=== PATIENT | male | born 1940 | race Caucasian/White ===

== ENCOUNTER 2020-08-02 07:36 | Inpatient (IN) ==
[2020-08-02] MEDS ORDERED: IOPAMIDOL 100 ML BOTTLE IV ONE (07:37)
[2020-08-02] MEDS ORDERED: LACTATED RINGERS 1,000 ML IV ONE (07:46)
[2020-08-02 08:00] LABS: POC Calcium, Ionized 1.14 mmEq/L (1.16-1.32); POC Creatinine 1.2 mg/dL (0.6-1.2); POC Potassium 4.4 mEql/L (3.3-5.1)
[2020-08-02] MEDS ORDERED: PANTOPRAZOLE 40 MG VIAL IV ONE (08:09)
--- NOTE | 2020-08-02 08:30 | Emergency Department Note ---
GI Bleed HPI General Chief complaint: Rectal Bleed Stated complaint: possible GI bleed, maroon stools Time Seen by Provider: 08/02/20 07:40 Source: patient and EMS Mode of arrival: EMS Limitations: no limitations History of Present Illness HPI Narrative: Narrative: Presents to room T5 for evaluation of rectal bleeding. The patient has a past medical history of Crohn's disease. The patient reports he has had rectal bleeding in the past but he believes his most recent episode was 2 years ago. The patient reports symptoms onset this morning at approximately 2 AM. The patient reports feeling weak. When he attempted to stand he had an uncontrolled large maroon/tarry bowel movement. He denies any abdominal pain. He denies any fevers. Denies any trauma. No nausea or vomiting. He denies any known exacerbating or alleviating factors Related Data Home Medications Medication Instructions Recorded Confirmed aspirin 81 mg PO DAILY 07/01/17 06/08/20 mercaptopurine 50 mg PO DAILY 07/01/17 06/08/20 cholecalciferol (vitamin D3) 125 125 mcg PO QDAY 10/12/19 06/08/20 mcg (5,000 unit) capsule multivitamin 1 tab PO QAM 10/12/19 06/08/20 folic acid 1 mg tablet 1 mg PO 3XW tab 11/23/19 06/08/20 mecobalamin (vitamin B12) 1,000 1,000 mcg PO 3XW tab 11/23/19 06/08/20 mcg chewable tablet bumetanide 1 mg tablet 1 mg PO QDAY tab 04/20/20 06/08/20 Previous Rx's Medication Instructions Recorded sertraline 25 mg tablet 25 mg PO DAILY #90 tab 10/13/19 sildenafil 100 mg tablet 100 mg PO DAILY #90 tab 02/07/20 blood sugar diagnostic See Rx Instructions .ROUTE 03/20/20 .COMPLEX #100 strip rivaroxaban 10 mg tablet 10 mg PO QDAY #90 tab 03/23/20 irbesartan 75 mg tablet 75 mg PO QDAY #90 tab 05/29/20 balsalazide 750 mg capsule 2,250 mg PO TID #810 cap 07/11/20 potassium chloride 10 mEq 10 meq PO BID #180 tab 07/21/20 tablet,extended release carvedilol 3.125 mg tablet See Rx Instructions .ROUTE 03/10/21 .COMPLEX #180 tab Allergies Allergy/AdvReac Type Severity Reaction Status Date / Time No Known Intolerances Allergy Unknown Other Verified 08/02/20 07:44 Review of Systems ROS ROS Narrative: Narrative: All systems ED: reviewed and negative except as stated. FORMERLY [facility] Narrative Patient History Narrative: Narrative: Medical/Surgical/Family History All Active Problems (Updated 08/02/20 @ 11:20 by Daniel Moon MD) Rectal bleeding (Acute) Diabetes mellitus with hyperglycemia (Acute) Low back pain (Acute) Basal cell carcinoma (BCC) of skin of nose (Chronic ~10/27/17) Hemorrhoids (Chronic) Hay fever (Chronic) Pneumonia (Chronic) Measles (Chronic) Acute systolic CHF (congestive heart failure), NYHA class 1 (Chronic) Major depressive disorder, single episode, mild (Chronic) Chronic systolic (congestive) heart failure (Chronic) Pulmonary arterial hypertension (Chronic) Mitral insufficiency (Chronic) Sick sinus syndrome (Chronic) 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) Personal history of diseases of the skin and subcutaneous tissue (Chronic) Other hemoglobinopathies (Chronic) Chronic fatigue (Chronic) Benign prostatic hyperplasia without lower urinary tract symptoms (Chronic) 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) Left sided colitis without complications (Chronic) CKD (chronic kidney disease), stage II (Chronic) Right bundle branch block (Chronic) Dry eye syndrome of both eyes (Chronic) Unspecified ptosis of bilateral eyelids (Chronic) Contraction, 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) Conductive hearing loss, bilateral (Chronic) 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) Other ulcerative colitis without complications (Chronic) Anxiety (Chronic) Hernia (Chronic) Cataract (Chronic) Kidney stones (Chronic ~07/2019) High cholesterol (Chronic ~1989) High blood pressure (Chronic ~1994) History of blood clots (Chronic ~07/2018) Crohn's disease (Chronic) Skin cancer (Chronic) Diabetes mellitus, type II (Chronic) Left upper extremity swelling (Chronic) Subclavian vein thrombosis, left (Chronic) Pacemaker (Chronic ~07/2017) Prediabetes (Chronic) Inflammatory bowel disease (Chronic) Bradycardia (Chronic) Medical History (Updated 08/02/20 @ 11:20 by Daniel Moon MD) Acute systolic CHF (congestive heart failure), NYHA class 1 Anxiety Basal cell carcinoma (BCC) of skin of nose (~10/27/17) Benign prostatic hyperplasia without lower urinary tract symptoms Bradycardia Cataract 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 Chronic fatigue Chronic systolic (congestive) heart failure CKD (chronic kidney disease), stage II Conductive hearing loss, bilateral Contraction, premature ventricular Crohn's disease Diabetes mellitus with hyperglycemia Diabetes mellitus, type II Dry eye syndrome of both eyes ED (erectile dysfunction) of non-organic origin Hay fever Hemorrhoids Hernia High blood pressure (~1994) High cholesterol (~1989) History of blood clots (~07/2018) Inflammatory bowel disease Kidney stones (~07/2019) Left sided colitis without complications Left upper extremity swelling Low back pain Major depressive disorder, single episode, mild Measles Mitral insufficiency Other hemoglobinopathies Other ulcerative colitis without complications Pacemaker (~07/2017) Personal history of diseases of the skin and subcutaneous tissue H/O sebaceous epithelioma, 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 Unspecified ptosis of bilateral eyelids Vertebro-basilar artery syndrome Surgical History History of cataract extraction (~2014) History of colonoscopy (~12/2008) History of eye surgery (~2016) History of hernia repair 1994; 2002 History of pacemaker (~08/13/17) 2017; 2019 History of strabismus surgery (~2016) Status post surgical removal of malignant neoplasm of skin (~2018) Right Cheek Family History Sister Ovarian cancer Father High blood pressure Heart attack Social History Smoking Status: Never smoker Alcohol Intake Frequency: a few times a month Substance Use: does not use Exam Narrative Narrative: Narrative: General Limitations: no limitations General appearance: Present alert, in no apparent distress and other (The patient is noted to be covered in dark melanotic stool over majority of his legs consistent with GI bleed) Head Head: Present atraumatic, normocephalic and normal inspection Eye Eye: Present normal appearance and EOMI; Absent conjunctival injection ENT ENT: Present normal exam and mucous membranes moist Neck Neck: Present normal inspection and trachea midline Respiratory Respiratory: Present normal lung sounds bilaterally; Absent respiratory distress Cardiovascular Cardiovascular: Present regular rate, normal rhythm and normal heart sounds Adbominal Abdominal: Present soft; Absent distention, tenderness, guarding and rebound Extremities Extremities: Present normal inspection; Absent tenderness Back Back: Present normal inspection; Absent tenderness Neurological Neurological: Present alert, oriented X3 and CN II-XII intact; Absent motor sen beto deficit Psychiatric Psychiatric: Present normal affect and normal mood Skin Skin: Present warm (WNL) and dry; Absent rash Course Vital Signs Vital signs: Vital Signs Pulse Rate 102 H 08/02/20 07:36 Respiratory Rate 20 08/02/20 07:36 Blood Pressure 119/61 08/02/20 07:36 Pulse Oximetry (%) 94 08/02/20 07:36 Pulse Rate 91 H 08/02/20 11:01 Respiratory Rate 17 08/02/20 11:01 Blood Pressure 129/55 08/02/20 11:01 Pulse Oximetry (%) 94 08/02/20 11:01 MDM MDM Narrative Medical decision making narrative: Narrative: Lab Data Lab results reviewed: Yes I reviewed the patient's lab results. Result diagrams: 08/02/20 Unknown 08/02/20 Unknown Labs: Lab Results 08/02/20 08/02/20 08/02/20 Range/Units 07:52 Unknown Unknown WBC 13.6 H (4.5-11.0) K/mcL RBC 3.01 L (4.50-5.90) M/mcL Hgb 7.8 L (13.5-16.5) g/dL Hct 26.1 L (41.0-55.0) % POC Hct 28 L (41-55) % MCV 86.7 (80.0-100.0) fL MCH 25.9 L (26.0-34.0) pg MCHC 29.9 L (31.0-36.0) g/dL RDW 19.7 H (11.5-14.5) % Plt Count 379 (140-440) K/mcL MPV 10.1 (7.4-10.4) fL Neut % (Auto) 96.6 H (38.0-78.0) % Lymph % (Auto) 0.7 L (15.0-49.0) % Hartley % (Auto) 2.2 (1.0-12.0) % Eos % (Auto) 0.1 (0.0-7.0) % Baso % (Auto) 0.4 (0.0-2.0) % Lymph # (Auto) 0.10 L (1.50-4.80) K/mcL Hartley # (Auto) 0.30 (0.10-0.90) K/mcL Eos # (Auto) 0.02 (0.00-0.70) K/mcL Baso # (Auto) 0.05 (0.00-0.20) K/mcL Absolute Neutrophils 13.09 H (1.80-8.00) K/mcL PT 15.4 H (11.9-14.5) sec INR 1.2 H (0.9-1.1) APTT 36.9 (20.0-37.0) sec POC Sodium 138 (133-145) mEq/L Sodium (133-145) mmol/L POC Potassium 4.4 (3.3-5.1) mEql/L Potassium (3.3-5.1) mmol/L POC Chloride 106 (96-108) mEq/L Chloride (96-108) mmol/L Carbon Dioxide (22-30) mmol/L POC Total CO2 22 (22-30) mmol/L Anion Gap (8.0-16.0) POC BUN 29 H (6-20) mg/dL BUN (8-23) mg/dL Creatinine (0.7-1.2) mg/dL POC Creatinine 1.2 (0.6-1.2) mg/dL GFR Calculation Glucose (70-105) mg/dL POC Glucose 179 H (70-105) mg/dL Calcium (8.6-10.4) mg/dL POC WB Ioniz Calcium 1.14 L (1.16-1.32) mmEq/L Total Bilirubin (0.1-1.0) mg/dL AST (<40) U/L ALT (<40) U/L Alkaline Phosphatase (39-117) U/L Total Protein (5.9-8.4) gm/dL Albumin (3.2-5.2) gm/dL Globulin (2.2-3.7) gm/dL Albumin/Globulin Ratio (1.0-2.3) // Range/Units Unknown WBC (4.5-11.0) K/mcL RBC (4.50-5.90) M/mcL Hgb (13.5-16.5) g/dL Hct (41.0-55.0) % POC Hct (41-55) % MCV (80.0-100.0) fL MCH (26.0-34.0) pg MCHC (31.0-36.0) g/dL RDW (11.5-14.5) % Plt Count (140-440) K/mcL MPV (7.4-10.4) fL Neut % (Auto) (38.0-78.0) % Lymph % (Auto) (15.0-49.0) % Hartley % (Auto) (1.0-12.0) % Eos % (Auto) (0.0-7.0) % Baso % (Auto) (0.0-2.0) % Lymph # (Auto) (1.50-4.80) K/mcL Hartley # (Auto) (0.10-0.90) K/mcL Eos # (Auto) (0.00-0.70) K/mcL Baso # (Auto) (0.00-0.20) K/mcL Absolute Neutrophils (1.80-8.00) K/mcL PT (11.9-14.5) sec INR (0.9-1.1) APTT (20.0-37.0) sec POC Sodium (133-145) mEq/L Sodium 137 (133-145) mmol/L POC Potassium (3.3-5.1) mEql/L Potassium 4.5 (3.3-5.1) mmol/L POC Chloride (96-108) mEq/L Chloride 102 (96-108) mmol/L Carbon Dioxide 23 (22-30) mmol/L POC Total CO2 (22-30) mmol/L Anion Gap 12.0 (8.0-16.0) POC BUN (6-20) mg/dL BUN 30 H (8-23) mg/dL Creatinine 1.2 (0.7-1.2) mg/dL POC Creatinine (0.6-1.2) mg/dL GFR Calculation 57 Glucose 182 H (70-105) mg/dL POC Glucose (70-105) mg/dL Calcium 8.8 (8.6-10.4) mg/dL POC WB Ioniz Calcium (1.16-1.32) mmEq/L Total Bilirubin 0.4 (0.1-1.0) mg/dL AST 15 (<40) U/L ALT 7 (<40) U/L Alkaline Phosphatase 78 (39-117) U/L Total Protein 7.0 (5.9-8.4) gm/dL Albumin 3.5 (3.2-5.2) gm/dL Globulin 3.5 (2.2-3.7) gm/dL Albumin/Globulin Ratio 1.0 (1.0-2.3) Radiology Data Radiology results reviewed: Yes I reviewed the patient's radiology results. Rhythm Strip Data Rhythm Strip Rate: 90 Interpretation: paced rhythm Pulse Oximetry Data Pulse Ox %: 95 Interpretation: normal CC TIME Critical Care Time Critical Care Time: Yes Total Critical Care Time: 30 Attestation: Approximately [30] minutes of critical care time was used in order to assess and manage the high probability of imminent or life threatening deterioration to gastrointestinal system which required my highest level of preparedness and interventions with frequent patient assessments. This time is excluding time spent on separately billable procedures. Patient presents for evaluation of symptomatic rectal bleeding. The patient is taking aspirin and Xarelto. Most likely this is due to left subclavian vein occlusive clot which is nonacute. Patient's H&H has slightly diminished compared to baseline. The patient's BUN is essentially unchanged but elevated. The patient has a paced rhythm but has had a normal blood pressure throughout the entire course in the emergency department. He has had no further episodes of rectal bleeding. CT scan does show asymmetrical thickening of the descending colon. There is also diverticular disease. An incidental finding of complex density in the head of the pancreas is identified by the radiologist and has been discussed with the patient and the family. I did discuss the patient's case with his acting instructor, Dr. Antunez. We have coordinated care. At this time we will hold on antibiotic administration. In addition we will not attempt to reverse his anticoagulation as his vital signs are stable and he has no active bleeding. The patient has been treated with a single dose of IV Protonix. I have discussed the case also with the admitting hospitalist, Dr. Lucio. We will admit the patient here to our facility. Discharge Plan Patient/Caregiver Discharge Instructions Pt seen by PARALEGAL SUPERVISOR/PA only: No Clinical Impression: Rectal bleeding Patient Disposition: Xfer As Inpt ([facility]) Condition: Fair Follow up with: Milton Bynum MD, FAAFP [Primary Care Provider] - Prescriptions: No Action sertraline 25 mg tablet 25 mg PO DAILY Qty: 90 RF: 3 sildenafil 100 mg tablet 100 mg PO DAILY Qty: 90 RF: 4 blood sugar diagnostic [Contour Test Strips] Strip See Rx Instructions .ROUTE .COMPLEX Qty: 100 RF: 3 Xarelto 10 mg tablet 10 mg PO QDAY Qty: 90 RF: 4 irbesartan 75 mg tablet 75 mg PO QDAY Qty: 90 RF: 4 balsalazide 750 mg capsule 2,250 mg PO TID Qty: 810 RF: 0 potassium chloride 10 mEq tablet extended release 10 meq PO BID Qty: 180 RF: 4 carvedilol 3.125 mg tablet See Rx Instructions .ROUTE .COMPLEX Qty: 180 RF: 3 multivitamin [Multiple Vitamins] Tablet 1 tab PO QAM RF: 0 cholecalciferol (vitamin D3) 125 mcg (5,000 unit) capsule 125 mcg PO QDAY RF: 0 folic acid 1 mg tablet 1 mg PO 3XW RF: 0 mecobalamin (vitamin B12) 1,000 mcg tablet,chewable 1,000 mcg PO 3XW RF: 0 bumetanide 1 mg tablet 1 mg PO QDAY RF: 0 mercaptopurine 50 MG tablet 50 mg PO DAILY RF: 0 aspirin 81 MG tablet,chewable 81 mg PO DAILY RF: 0
--- NOTE | 2020-08-02 09:03 | Cat Scan Report ---
History: Rectal bleeding, Crohn's disease technique: The patient was imaged following injection of intravenous nonionic contrast scanning during the portal venous phase from the diaphragm through the symphysis pubis. Sagittal and coronal reformats were created. The radiation exposure was limited using dose reduction technology. FINDINGS: There are multiple dilated enhancing collateral veins in the right anterolateral chest wall extending down to the right side of the abdomen. The intravenous injection had been performed through a vein in the right arm. The collateral vessels indicate venous occlusion in the right thoracic inlet. There is mild heterogeneity of the liver parenchyma and mild edema in the portal triads. The gallbladder appears normal with no stones or thickening of the wall. The extrahepatic bile ducts are nondistended and measure up to 5 mm. There a couple small subcapsular cysts posteriorly in the spleen. Spleen is normal in size. There is an ill-defined low-attenuation lesion posteriorly in the head of the pancreas extending towards the uncinate process. It measures 9 x 11 mm. The remainder the pancreas is normal. A nonobstructing 8 mm calculus is present within a calyx posteriorly in the middle third of the left kidney. There is no stone in the right kidney. No hydronephrosis or mass are present in either kidney. The aorta is normal in caliber. There are scattered plaques along the wall of the distal aorta and iliac arteries. There is normal enhancement of the visceral arteries and veins, without evidence of hemodynamically significant stenosis or thrombosis of the vessel supplying the intestine. There is circumferential thickening of the wall of the distal ascending colon and hepatic flexure. This segment of bowel is distended with gas. The wall ranges from 7 to 16 mm in thickness. There are no diverticula at this level. Proximal to this, the cecum is decompressed. There are multiple small noninflamed diverticula in the transverse descending and sigmoid colon. The small intestine is normal without evidence of inflammation or obstruction. Trace amount of ascites is seen deep in the right lower pelvis. Urinary bladder is incompletely distended. The bladder is elevated from the floor the pelvis by a moderately enlarged prostate. No adenopathy or abscess are present. Bilateral spondylolysis defects are present at L5 resulting in grade 2 spondylolisthesis. There is degenerative disc disease and arthritis throughout the lumbar spine and lower thoracic spine. There is severe stenosis of the neural foramina bilaterally at L4-5 and L5-S1 and mild central canal stenosis at L2-3 and L3-4 and L4-5. IMPRESSION: Abnormally thickened wall of the ascending colon and hepatic flexure. This may be due to colitis. Heterogeneous liver with prominence of the portal triads. This is a nonspecific finding which may be associated with hepatitis. Collateral veins in the right chest and abdominal wall indicating venous occlusion at the right thoracic inlet Diverticulosis Nonspecific low-attenuation lesion in the head of the pancreas which could be an irregular cyst or neoplasm Dr. Moon was called with the report Interpreted and Authenticated by: Román yLnn 08/02/20
[2020-08-02 09:06] LABS: Basophils # (Auto) 0.05 K/mcL (0.00-0.20); Basophils % (Auto) 0.4 % (0.0-2.0); Eosinophils # (Auto) 0.02 K/mcL (0.00-0.70); Eosinophils % (Auto) 0.1 % (0.0-7.0); Hematocrit 26.1 % (41.0-55.0); Hemoglobin 7.8 g/dL (13.5-16.5); Lymphocytes % (Auto) 0.7 % (15.0-49.0); Mean Cell Volume 86.7 fL (80.0-100.0); Mean Corpuscular HGB Conc 29.9 g/dL (31.0-36.0); Mean Platelet Volume 10.1 fL (7.4-10.4); Monocytes % (Auto) 2.2 % (1.0-12.0); Neutrophils % (Auto) 96.6 % (38.0-78.0); Platelet Count 379 K/mcL (140-440); RBC 3.01 M/mcL (4.50-5.90); Red Cell Distribution Width 19.7 % (11.5-14.5); WBC 13.6 K/mcL (4.5-11.0)
[2020-08-02 09:18] LABS: Partial Thromboplastin Time 36.9 sec (20.0-37.0)
[2020-08-02 09:20] LABS: ALT/SGPT 7 U/L (<40); AST/SGOT 15 U/L (<40); Albumin 3.5 gm/dL (3.2-5.2); Alkaline Phosphatase 78 U/L (39-117); Bilirubin,Total 0.4 mg/dL (0.1-1.0); Blood Urea Nitrogen 30 mg/dL (8-23); Calcium 8.8 mg/dL (8.6-10.4); Carbon Dioxide 23 mmol/L (22-30); Chloride 102 mmol/L (96-108); Globulin 3.5 gm/dL (2.2-3.7); Glomerular Filtration Rate 57; Glucose 182 mg/dL (70-105)
[2020-08-02 09:29] LABS: INR 1.2 (0.9-1.1); Prothrombin Time 15.4 sec (11.9-14.5)
--- NOTE | 2020-08-02 10:57 | Internal Med History&Physical ---
HPI History of Present Illness Patient information: Note initiated : 08/02/20 at 10:51 am Service Date, if different from initiated Date: [] Patient: Evgeny Garcia a 80 y/o M admitted on for Possible GI Bleed, Maroon Stools. Chief Complaint: Bloody stool/weakness found down History of present illness: Mr. 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 She also noticed blood in the commode. Patient was extremely weak and lightheaded however denies losing consciousness or seizure-like episode. He denies hurting himself at this gradually slid down on the floor while returning from bathroom. Per history he passed multiple bloody maroon stools with clots. Patient denies abdominal pain/bloody emesis. He is currently on rivaroxaban and aspirin. Patient was brought to the ER initial work-up was consistent with GI bleed and subsequently tobacco buyer Dr. Antunez was consulted for endoscopy evaluation. Patient was started on PPI/crystalloids. Stable hemodynamics. Hospital service was consulted for admission At the time of evaluation patient is accompanied with his Taisha. She was able to answer most the questions. Patient feels a lot better. Systolics 130. Doing a stat transfusion ordered. Denies chest pain, shortness of breath but endorses dizziness and weakness. He denies prior episodes of GI bleed. His Crohn's disease well controlled and has not had a hospitalization in the recent past Review of systems 10 point review system was performed and is negative except for one discussed above PFSH PFSH All Active Problems (Updated 08/02/20 @ 11:20 by Daniel Moon MD) Rectal bleeding (Acute) Diabetes mellitus with hyperglycemia (Acute) Low back pain (Acute) Basal cell carcinoma (BCC) of skin of nose (Chronic ~10/27/17) Hemorrhoids (Chronic) Hay fever (Chronic) Pneumonia (Chronic) Measles (Chronic) Acute systolic CHF (congestive heart failure), NYHA class 1 (Chronic) Major depressive disorder, single episode, mild (Chronic) Chronic systolic (congestive) heart failure (Chronic) Pulmonary arterial hypertension (Chronic) Mitral insufficiency (Chronic) Sick sinus syndrome (Chronic) 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) Personal history of diseases of the skin and subcutaneous tissue (Chronic) Other hemoglobinopathies (Chronic) Chronic fatigue (Chronic) Benign prostatic hyperplasia without lower urinary tract symptoms (Chronic) 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) Left sided colitis without complications (Chronic) CKD (chronic kidney disease), stage II (Chronic) Right bundle branch block (Chronic) Dry eye syndrome of both eyes (Chronic) Unspecified ptosis of bilateral eyelids (Chronic) Contraction, 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) Conductive hearing loss, bilateral (Chronic) 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) Other ulcerative colitis without complications (Chronic) Anxiety (Chronic) Hernia (Chronic) Cataract (Chronic) Kidney stones (Chronic ~07/2019) High cholesterol (Chronic ~1989) High blood pressure (Chronic ~1994) History of blood clots (Chronic ~07/2018) Crohn's disease (Chronic) Skin cancer (Chronic) Diabetes mellitus, type II (Chronic) Left upper extremity swelling (Chronic) Subclavian vein thrombosis, left (Chronic) Pacemaker (Chronic ~07/2017) Prediabetes (Chronic) Inflammatory bowel disease (Chronic) Bradycardia (Chronic) Medical History (Updated 08/02/20 @ 11:20 by Daniel Moon MD) Acute systolic CHF (congestive heart failure), NYHA class 1 Anxiety Basal cell carcinoma (BCC) of skin of nose (~10/27/17) Benign prostatic hyperplasia without lower urinary tract symptoms Bradycardia Cataract 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 Chronic fatigue Chronic systolic (congestive) heart failure CKD (chronic kidney disease), stage II Conductive hearing loss, bilateral Contraction, premature ventricular Crohn's disease Diabetes mellitus with hyperglycemia Diabetes mellitus, type II Dry eye syndrome of both eyes ED (erectile dysfunction) of non-organic origin Hay fever Hemorrhoids Hernia High blood pressure (~1994) High cholesterol (~1989) History of blood clots (~07/2018) Inflammatory bowel disease Kidney stones (~07/2019) Left sided colitis without complications Left upper extremity swelling Low back pain Major depressive disorder, single episode, mild Measles Mitral insufficiency Other hemoglobinopathies Other ulcerative colitis without complications Pacemaker (~07/2017) Personal history of diseases of the skin and subcutaneous tissue H/O sebaceous epithelioma, 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 Unspecified ptosis of bilateral eyelids Vertebro-basilar artery syndrome Surgical History History of cataract extraction (~2014) History of colonoscopy (~12/2008) History of eye surgery (~2016) History of hernia repair 1994; 2002 History of pacemaker (~08/13/17) 2017; 2019 History of strabismus surgery (~2016) Status post surgical removal of malignant neoplasm of skin (~2018) Right Cheek Family History Sister Ovarian cancer Father High blood pressure Heart attack Social History marital status: occupational status: retired smoking status: Never smoker alcohol intake frequency: a few times a month substance use type: does not use MEDS/ALLERGIES Home Medications and Allergies Home Medications Medication Instructions Recorded Confirmed Type aspirin 81 mg PO DAILY 07/01/17 08/02/20 History mercaptopurine 50 mg PO DAILY 07/01/17 08/02/20 History cholecalciferol (vitamin D3) 125 125 mcg PO QDAY 10/12/19 08/02/20 History mcg (5,000 unit) capsule multivitamin 1 tab PO QAM 10/12/19 08/02/20 History sertraline 25 mg tablet 25 mg PO DAILY #90 tab 10/13/19 08/02/20 Rx folic acid 1 mg tablet 1 mg PO 3XW tab 11/23/19 08/02/20 History mecobalamin (vitamin B12) 1,000 1,000 mcg PO 3XW tab 11/23/19 08/02/20 History mcg chewable tablet sildenafil 100 mg tablet 100 mg PO DAILY #90 tab 02/07/20 06/08/20 Rx blood sugar diagnostic See Rx Instructions .ROUTE 03/20/20 06/08/20 Rx .COMPLEX #100 strip rivaroxaban 10 mg tablet 10 mg PO QDAY #90 tab 03/23/20 08/02/20 Rx bumetanide 1 mg tablet 1 mg PO BID tab 04/20/20 08/02/20 History irbesartan 75 mg tablet 75 mg PO QDAY #90 tab 05/29/20 08/02/20 Rx balsalazide 750 mg capsule 2,250 mg PO TID #810 cap 07/11/20 08/02/20 Rx carvedilol 3.125 mg tablet See Rx Instructions .ROUTE 07/26/20 08/02/20 Rx .COMPLEX #180 tab potassium chloride 20 meq PO BID 08/02/20 08/02/20 History Allergies Allergy/AdvReac Type Severity Reaction Status Date / Time No Known Intolerances Allergy Unknown Other Verified 08/02/20 07:44 EXAM Constitutional Vitals: Pulse Resp BP Pulse Ox 94 H 21 136/59 95 08/02/20 10:31 08/02/20 10:31 08/02/20 10:31 08/02/20 10:31 Alert but fatigued Head normocephalic Oral cavity moist No ear nose discharge Minimal subconjunctival pallor, eye movement symmetrical Neck supple no lymphadenopathy S1-S2 paced rhythm, bilateral anterior chest wall pacemaker is noted, no tenderness at the pacemaker site Rapid shallow breathing Nondistended nontender abdomen Lower extremity no cyanosis clubbing or joint swelling Skin no suspicious lesion Psych anxious no hallucination Neuro normal higher function DATA Data Completed and Pending Labs: Labs from last 24 hours 08/02/20 08/02/20 08/02/20 Unknown Unknown Unknown WBC 13.6 H RBC 3.01 L Hgb 7.8 L Hct 26.1 L POC Hct MCV 86.7 MCH 25.9 L MCHC 29.9 L RDW 19.7 H Plt Count 379 MPV 10.1 Neut % (Auto) 96.6 H Lymph % (Auto) 0.7 L [place] % (Auto) 2.2 Eos % (Auto) 0.1 Baso % (Auto) 0.4 Lymph # (Auto) 0.10 L [place] # (Auto) 0.30 Eos # (Auto) 0.02 Baso # (Auto) 0.05 Absolute Neutrophils 13.09 H PT 15.4 H INR 1.2 H APTT 36.9 POC Sodium Sodium 137 POC Potassium Potassium 4.5 POC Chloride Chloride 102 Carbon Dioxide 23 POC Total CO2 Anion Gap 12.0 POC BUN BUN 30 H Creatinine 1.2 POC Creatinine GFR Calculation 57 Glucose 182 H POC Glucose Calcium 8.8 POC WB Ioniz Calcium Total Bilirubin 0.4 AST 15 ALT 7 Alkaline Phosphatase 78 Total Protein 7.0 Albumin 3.5 Globulin 3.5 Albumin/Globulin Ratio 1.0 08/02/20 07:52 WBC RBC Hgb Hct POC Hct 28 L MCV MCH MCHC RDW Plt Count MPV Neut % (Auto) Lymph % (Auto) [place] % (Auto) Eos % (Auto) Baso % (Auto) Lymph # (Auto) [place] # (Auto) Eos # (Auto) Baso # (Auto) Absolute Neutrophils PT INR APTT POC Sodium 138 Sodium POC Potassium 4.4 Potassium POC Chloride 106 Chloride Carbon Dioxide POC Total CO2 22 Anion Gap POC BUN 29 H BUN Creatinine POC Creatinine 1.2 GFR Calculation Glucose POC Glucose 179 H Calcium POC WB Ioniz Calcium 1.14 L Total Bilirubin AST ALT Alkaline Phosphatase Total Protein Albumin Globulin Albumin/Globulin Ratio A/P Narrative A/P Narrative: * GI bleed-underlying Crohn's disease/anticoagulation. GI consulted. Will undergo scope today. Keep n.p.o. Admit as observation. * Acute blood loss anemia requiring transfusion. 2 units PRBC/every 4 hour hemoglobin checks. * History of hypertension hold antihypertensives until GI bleed improves * Anticoagulation for history of upper extremity DVT-currently held. * History of Crohn's disease on balsalazide/mercaptopurine * History of bradycardia, paced rhythm * CAD -hold Coreg/irbesartan * Anxiety disorder continue sertraline Plan * Observation telemetry monitored admit * GI consult * Twice daily PPI/2 units PRBC transfusion, 4 hourly hemoglobin checks * Keep n.p.o./crystalloids * Hold antihypertensives Time Spent With Patient Time: Total time spent is greater than 50% in coordination of care (as documented) at patient's floor/unit and/or counseling patient:
[2020-08-02] MEDS ORDERED: NOREPINEPHRINE BITARTRATE 8 MG in 0.9 % SODIUM CHLORIDE 242 ML IV PRN (13:10)
[2020-08-02] MEDS ORDERED: ONDANSETRON 4 MG/2 ML VIAL IV PRN (13:10)
[2020-08-02] MEDS ORDERED: ONDANSETRON 4 MG ODT TABLET SL PRN (13:10)
[2020-08-02] MEDS ORDERED: ACETAMINOPHEN 650 MG/65 ML BAG IV PRN (13:10)
[2020-08-02] MEDS ORDERED: BISACODYL 10 MG SUPP.RECT PR PRN (13:10)
[2020-08-02] MEDS ORDERED: ACETAMINOPHEN 325 MG TABLET PO PRN (13:10)
[2020-08-02] MEDS ORDERED: POTASSIUM CHLORIDE 40 MEQ in DEXTROSE 5% IN WATER 500 ML IV PRN (13:10)
[2020-08-02] MEDS ORDERED: POLYETHYLENE GLYCOL 3350 17 GM PACKET PO PRN (13:10)
[2020-08-02] MEDS ORDERED: 0.9 % SODIUM CHLORIDE 250 ML IV SCH (13:10)
[2020-08-02] MEDS ORDERED: MAGNESIUM SULFATE 2 GM/50 ML BAG IV PRN (13:10)
[2020-08-02] MEDS: 0.9 % SODIUM CHLORIDE 10 ML SYRINGE IV SCH ×2 (13:19→20:15)
[2020-08-02] MEDS: 0.9 % SODIUM CHLORIDE 250 ML IV SCH (13:19)
[2020-08-02] MEDS: 0.9 % SODIUM CHLORIDE 1,000 ML IV SCH (13:40)
[2020-08-02] MEDS ORDERED: MIDAZOLAM 2 MG/2 ML VIAL IV SCH (16:45)
[2020-08-02] MEDS ORDERED: PROPOFOL 200 MG/20 ML VIAL IV SCH (16:45)
[2020-08-02] MEDS ORDERED: GLYCOPYRROLATE 0.2 MG/ML VIAL IV SCH (16:45)
[2020-08-02] MEDS: INSULIN LISPRO 1 UNIT/0.01 ML UNIT SQ SCH ×2 (17:21→20:16)
[2020-08-02] MEDS: PANTOPRAZOLE 40 MG VIAL IV SCH (19:02)
[2020-08-02] MEDS: DOCUSATE SODIUM 100 MG CAPSULE PO SCH (20:15)
[2020-08-02] MEDS ORDERED: MELATONIN 3 MG TABLET PO PRN (21:00)
[2020-08-03] MEDS: 0.9 % SODIUM CHLORIDE 250 ML IV SCH (02:22)
[2020-08-03] MEDS ORDERED: PEG 3350/NA SULF,BICARB,CL/KCL 4,000 ML ORAL.SOL PO ONE ×2 (05:00→08:27)
[2020-08-03] MEDS: 0.9 % SODIUM CHLORIDE 10 ML SYRINGE IV SCH ×4 (05:07→20:22)
--- NOTE | 2020-08-03 07:30 | EGD Procedure Note ---
PREOPERATIVE DIAGNOSES: Upper gastrointestinal bleed secondary to gastric or duodenal ulcer. POSTOPERATIVE DIAGNOSES: 1. Large polyp mass--greater curve body. 2. Gastroesophageal reflux disease with esophagitis. 3. Gastrointestinal bleeding, probably from ischemic colitis from right colon. PROCEDURE: Esophagogastroduodenoscopy with biopsy. INSTRUMENT USED: Olympus RIANA [id number] endoscope. SPECIMENS OBTAINED: Biopsies from antrum to check for Helicobacter. Biopsies from the polypoid mass. Upper stomach body, greater curve. INDICATIONS: The patient is an 80-year-old gentleman referred by Dr. Bynum The patient does have a working diagnosis of Crohn's disease. He has had colonoscopy. His last one was in 2019. To be more precise, I felt this was probably inflammatory bowel disease, indeterminate, closer to Crohn's disease. FINDINGS: TERMINAL ILEUM appeared normal. There were some pseudopolyps noted. Most of the inflammation was sigmoid descending colon. [facility] IBD study suggested inflammatory bowel disease, ulcerative colitis. Pathology report suggests we have inflammatory bowel disease and pathologist was favoring ulcerative colitis; however, the endoscopic appearance is a little more consistent with Crohn's disease, inflammatory bowel disease--type indeterminate is probably the most accurate diagnosis. The patient does have some element of renal failure. Today, he when he awoke, he felt weak. He did pass some incontinent bloody stool that appeared to be fairly black. He did come to the hospital. Hemoglobin, I believe was 7.8, not too long ago was 8.4, about a year ago it was 11. He was a little weak. Because of the melanotic stool and because of the elevated BUN compared to creatinine, I was concerned he may have an upper GI bleed. CAT scan, however, was done that showed some abnormal wall thickening in the ascending colon/hepatic flexure area. This sounds more like ischemic colitis. Endoscopy is indicated to evaluate for possible upper GI source of bleeding. I do not believe the patient has had an EGD before. INFORMED CONSENT: Time of informed consent 17:24. The procedure was reviewed with the patient. The patient had no further questions and accepts the risks and benefits thereof. One of the risks that were discussed included . Additional risks that were also discussed included bleeding, reaction to medication, possible perforation and possible need for surgery. IV MEDICATIONS USED IV MEDICATIONS USED: Versed 0 and propofol 100 mg. FINDINGS: ESOPHAGUS: Proximal and mid esophagus normal. Distal esophagus: There were a few linear areas of erythema noted. This is consistent with reflux esophagitis. EG junction was at 38 cm. There was some erythema and edema noted there. STOMACH: Cardia and fundus normal. Body: High in the body on the greater curve, there was a polypoid mass. This was not very friable. I would estimate this polypoid mass to be about 2 x 3 cm in size. Multiple biopsies were obtained. There is slight concern regarding cancer, but not high concern. Antrum: This appeared normal. Biopsies were taken to check for Helicobacter. PYLORUS: Normal. DUODENUM: Appeared normal. RECOMMENDATIONS: Endoscopically, the patient is not bleeding from the upper GI tract. It is probably the lower GI tract, I believe ischemic colitis in the right colon. However, his reflux esophagitis would benefit from treatment and we do need to await the biopsy report from this polypoid mass in the body. RECOMMENDATIONS: Continue PPI medication. After the patient has had his colonoscopy, I believe that can be changed to p.o. I believe we should proceed with a colonoscopy on . I will suggest we start CoLyte 250 mL p.o. every 10-15 minutes, starting around 5:00 in the morning on , tomorrow. Patient can have a liquid diet tonight. We will need a permit for colonoscopy with possible biopsy and polypectomy. Further recommendations may be forthcoming after we see the pathology report. SEDATION TIME: 17:35 to 18:10. Please refer to the preprocedure nurse's notes, procedure flowsheet, procedure record, and post-procedure assessment for details of the sedation including the pre-, intra-, and post-service work. CRD:kh Job ID: [id number] Doc ID: [id number] Luis Glass MD
[2020-08-03 08:00] LABS: ALT/SGPT 41 U/L (<40); AST/SGOT 178 U/L (<40); Albumin 3.3 gm/dL (3.2-5.2); Albumin/Globulin Ratio 0.9 (1.0-2.3); Alkaline Phosphatase 73 U/L (39-117); Bilirubin,Direct < 0.2 mg/dL (0-0.3); Bilirubin,Total 0.6 mg/dL (0.1-1.0); Blood Urea Nitrogen 22 mg/dL (8-23); Calcium 8.6 mg/dL (8.6-10.4); Carbon Dioxide 25 mmol/L (22-30); Chloride 104 mmol/L (96-108); Globulin 3.6 gm/dL (2.2-3.7); Glomerular Filtration Rate 71; Glucose 94 mg/dL (70-105); Lactate Dehydrogenase 290 U/L (135-225); Phosphorous 2.6 mg/dL (2.5-4.5); Triglycerides 119 mg/dL (<150); Uric Acid 4.5 mg/dL (2.5-8.0)
[2020-08-03] MEDS: INSULIN LISPRO 1 UNIT/0.01 ML UNIT SQ SCH ×4 (08:26→19:45)
[2020-08-03] MEDS: DOCUSATE SODIUM 100 MG CAPSULE PO SCH ×2 (09:06→20:22)
[2020-08-03] MEDS: PANTOPRAZOLE 40 MG VIAL IV SCH ×2 (09:06→17:25)
[2020-08-03] MEDS: 0.9 % SODIUM CHLORIDE 1,000 ML IV SCH (09:31)
--- NOTE | 2020-08-03 10:49 | Internal Med Progress Note ---
SUBJECTIVE Subjective Patient information: Note initiated : 08/03/20 at 10:47 am Service Date, if different from initiated Date: [] Patient: Evgeny Garcia 80 y/o M admitted on 08/02/20 for Possible GI Bleed, Maroon Stools. Chief Complaint: Pertinent ROS: Mr. 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 She also noticed blood in the commode. Patient was extremely weak and lightheaded however denies losing consciousness or seizure- like episode. He denies hurting himself at this gradually slid down on the floor while returning from bathroom. Per history he passed multiple bloody maroon stools with clots. Patient denies abdominal pain/bloody emesis. He is currently on rivaroxaban and aspirin. Patient was brought to the ER initial work-up was consistent with GI bleed and subsequently shoe repairer apprentice Dr. Antunez was consulted for endoscopy evaluation. Patient was started on PPI/crystalloids. Stable hemodynamics. Hospital service was consulted for admission At the time of evaluation patient is accompanied with his Taisha. She was able to answer most the questions. Patient feels a lot better. Systolics 130. Doing a stat transfusion ordered. Denies chest pain, shortness of breath but endorses dizziness and weakness. He denies prior episodes of GI bleed. His Crohn's disease well controlled and has not had a hospitalization in the recent past 08/03-patient status post upper endoscopy and biopsies. No evidence source of bleed. Will undergo colonoscopy today. Ongoing prep. GI on board. No overnight fever chills. Hemoglobin stable. Status post units transfusion. Denies lightheadedness dizziness. No overnight telemetry events. On PPI. Constitutional Vitals: Vital Signs Temp Pulse Resp BP Pulse Ox 98.9 F 71 9 L 136/66 98 08/03/20 08:01 08/03/20 09:40 08/03/20 09:40 08/03/20 09:01 08/03/20 09:40 Period Temp Pulse Resp BP Sys/Magana Pulse Ox Last 24 Hr 97.7 F-100.7 F 63-93 9-27 102-136/49-86 92-100 Intake and Output 08/02/20 08/03/20 08/03/20 21:59 05:59 13:59 Intake Total 650 540 993 Output Total 500 250 Balance 150 290 993 Weight 65.227 kg alert and respond to commands, Nonlabored breathing Hard of hearing Nontender abdomen No pallor Intake & Output: Intake & Output 08/02/20 08/03/20 08/03/20 21:59 05:59 13:59 Intake Total 650 540 993 Output Total 500 250 Balance 150 290 993 Weight 65.227 kg Intake: IV 993 Sodium Chloride 0.9% 1,000 ml @ 993 50 mls/hr IV .Q20H [facility] Rx#: [id number] Oral 540 Blood Product 650 Output: Void Amount 500 250 Other: Urine Appearance Clear Clear Urine Color Dark Yellow Dark Yellow Urine Odor Normal Normal OBJ DATA Labs CBC & Chem 7: 08/03/20 05:43 08/03/20 05:42 Labs: Abnormal Lab Results 08/03/20 08/03/20 08/03/20 05:43 05:42 02:13 WBC RBC Hgb 9.6 L 9.2 L Hct POC Hct MCH MCHC RDW Neut % (Auto) Lymph % (Auto) Lymph # (Auto) Absolute Neutrophils PT INR POC BUN BUN Glucose POC Glucose POC WB Ioniz Calcium AST 178 H ALT 41 H Lactate Dehydrogenase 290 H Albumin/Globulin Ratio 0.9 L 08/02/20 08/02/20 08/02/20 Unknown Unknown Unknown WBC 13.6 H RBC 3.01 L Hgb 7.8 L Hct 26.1 L POC Hct MCH 25.9 L MCHC 29.9 L RDW 19.7 H Neut % (Auto) 96.6 H Lymph % (Auto) 0.7 L Lymph # (Auto) 0.10 L Absolute Neutrophils 13.09 H PT 15.4 H INR 1.2 H POC BUN BUN 30 H Glucose 182 H POC Glucose POC WB Ioniz Calcium AST ALT Lactate Dehydrogenase Albumin/Globulin Ratio 08/02/20 08/02/20 08/02/20 22:28 16:30 07:52 WBC RBC Hgb 8.6 L 7.2 L Hct POC Hct 28 L MCH MCHC RDW Neut % (Auto) Lymph % (Auto) Lymph # (Auto) Absolute Neutrophils PT INR POC BUN 29 H BUN Glucose POC Glucose 179 H POC WB Ioniz Calcium 1.14 L AST ALT Lactate Dehydrogenase Albumin/Globulin Ratio Meds: Medications Acetaminophen (Acetaminophen 325 Mg Tablet) 650 mg PO Q4-6HP PRN; Protocol PRN Reason: Per Pain Protocol/Fever > 101 Last Admin: 08/02/20 19:05 Dose: 650 mg Documented by: Bisacodyl (Bisacodyl 10 Mg Supp.Rect) 10 mg DC Q2-3DAYS PRN PRN Reason: Constipation Diagnostic Test (Pha) (Accu-Chek 1 Each Strip) 1 each FS ACHS [facility] Last Admin: 08/03/20 08:26 Dose: 1 each Documented by: Docusate Sodium (Docusate Sodium 100 Mg Capsule) 100 mg PO BID [facility] Last Admin: 08/03/20 09:06 Dose: 100 mg Documented by: Potassium Chloride 40 meq/ (Dextrose) 520 mls @ 130 mls/hr IV UD PRN PRN Reason: K+ = or < 3.5 Magnesium Sulfate (Magnesium Sulfate) 2 gm in 50 mls @ 50 mls/hr IV UD PRN PRN Reason: MG = or < 1.7 Acetaminophen (Ofirmev) 650 mg in 65 mls @ 130 mls/hr IV Q6HP PRN; Protocol PRN Reason: Per Pain Protocol/Fever > 101 Sodium Chloride (Sodium Chloride 0.9%) 1,000 mls @ 50 mls/hr IV .Q20H [facility] Stop: 08/05/20 01:09 Last Admin: 08/03/20 09:31 Dose: 50 mls/hr Documented by: Norepinephrine Bitartrate 8 mg (/ Sodium Chloride) 250 mls @ 18.75 mls/hr IV Q14H PRN; Protocol PRN Reason: MAP <65 Sodium Chloride (Sodium Chloride 0.9%) 250 mls @ 20 mls/hr IV .[id number] [facility] Last Admin: 08/03/20 02:22 Dose: Not Given Documented by: Insulin Human Lispro (Insulin Lispro 1 Unit/0.01 Ml Unit) 0 unit SQ [facility]; Protocol Last Admin: 08/03/20 08:26 Dose: Not Given Documented by: Melatonin (Melatonin 3 Mg Tablet) 3 mg PO HSP PRN PRN Reason: Insomnia Ondansetron HCl (Ondansetron 4 Mg Odt Tablet) 4 mg SL Q4-6HP PRN; Protocol PRN Reason: Nausea And Vomiting Ondansetron HCl (Ondansetron 4 Mg/2 Ml Vial) 4 mg IV Q4-6HP PRN; Protocol PRN Reason: Nausea And Vomiting Pantoprazole Sodium (Pantoprazole 40 Mg Vial) 40 mg IV BIDAC [facility] Last Admin: 08/03/20 09:06 Dose: 40 mg Documented by: Polyethylene Glycol (Polyethylene Glycol 3350 17 Gm Packet) 17 gm PO DAILYP PRN PRN Reason: Constipation Sodium Chloride (0.9 % Sodium Chloride 10 Ml Syringe) 10 ml IV Q8 [facility] Last Admin: 08/03/20 05:07 Dose: 10 ml Documented by: A/P Narrative A/P Narrative: * GI bleed-underlying Crohn's disease/anticoagulation. Status post upper endoscopy. Will undergo colonoscopy today. Ongoing colon prep * Acute blood loss anemia requiring transfusion. Hemoglobin improved status post 2 units PRBC. No further drop in hematocrit noted in the last 2 hours. * History of hypertension hold antihypertensives until GI bleed improves * Anticoagulation for history of upper extremity DVT-on hold due to bleed * History of Crohn's disease on balsalazide/mercaptopurine * History of bradycardia, paced rhythm * CAD -held Coreg/irbesartan * Anxiety disorder continue sertraline Plan * Continue inpatient treatment * Colonoscopy today * Continue PPI * Pre-existing medical condition management home meds Time Spent With Patient Time: Total time spent is greater than 50% in coordination of care (as documented) at patient's floor/unit and/or counseling patient: QUALITY VTE Deep Vein Thrombosis/Pulmonary Embolism Present on Admission: No
[2020-08-03 11:09] LABS: Basophils # (Auto) 0.06 K/mcL (0.00-0.20); Basophils % (Auto) 0.4 % (0.0-2.0); Eosinophils # (Auto) 0.05 K/mcL (0.00-0.70); Eosinophils % (Auto) 0.4 % (0.0-7.0); Hematocrit 31.7 % (41.0-55.0); Hemoglobin 9.7 g/dL (13.5-16.5); Lymphocytes # (Auto) 0.39 K/mcL (1.50-4.80); Lymphocytes % (Auto) 2.8 % (15.0-49.0); Mean Cell Volume 87.8 fL (80.0-100.0); Mean Corpuscular HGB Conc 30.6 g/dL (31.0-36.0); Mean Platelet Volume 10.7 fL (7.4-10.4); Monocytes # (Auto) 0.79 K/mcL (0.10-0.90); Monocytes % (Auto) 5.7 % (1.0-12.0); Neutrophils % (Auto) 90.7 % (38.0-78.0); Platelet Count 331 K/mcL (140-440); RBC 3.61 M/mcL (4.50-5.90); Red Cell Distribution Width 19.2 % (11.5-14.5)
[2020-08-03] MEDS ORDERED: MIDAZOLAM 2 MG/2 ML VIAL ONE (17:38)
[2020-08-03] MEDS ORDERED: PROPOFOL 200 MG/20 ML VIAL IV ONE ×2 (17:38→18:09)
[2020-08-03] MEDS ORDERED: PROPOFOL 200 MG/20 ML VIAL IV SCH (18:00)
[2020-08-04] MEDS: 0.9 % SODIUM CHLORIDE 10 ML SYRINGE IV SCH (05:32)
[2020-08-04] MEDS: 0.9 % SODIUM CHLORIDE 1,000 ML IV SCH (07:26)
[2020-08-04] MEDS: INSULIN LISPRO 1 UNIT/0.01 ML UNIT SQ SCH ×2 (07:30→12:27)
[2020-08-04] MEDS: PANTOPRAZOLE 40 MG VIAL IV SCH (07:31)
[2020-08-04 07:34] LABS: Basophils # (Auto) 0.03 K/mcL (0.00-0.20); Basophils % (Auto) 0.4 % (0.0-2.0); Eosinophils # (Auto) 0.09 K/mcL (0.00-0.70); Eosinophils % (Auto) 1.2 % (0.0-7.0); Hematocrit 33.7 % (41.0-55.0); Hemoglobin 9.8 g/dL (13.5-16.5); Lymphocytes # (Auto) 0.72 K/mcL (1.50-4.80); Lymphocytes % (Auto) 9.6 % (15.0-49.0); Mean Cell Volume 93.4 fL (80.0-100.0); Mean Corpuscular HGB Conc 29.1 g/dL (31.0-36.0); Mean Platelet Volume 10.6 fL (7.4-10.4); Monocytes # (Auto) 0.86 K/mcL (0.10-0.90); Monocytes % (Auto) 11.5 % (1.0-12.0); Neutrophils % (Auto) 77.3 % (38.0-78.0); Platelet Count 279 K/mcL (140-440); RBC 3.61 M/mcL (4.50-5.90); Red Cell Distribution Width 19.5 % (11.5-14.5); WBC 7.5 K/mcL (4.5-11.0)
[2020-08-04 07:53] LABS: ALT/SGPT 38 U/L (<40); AST/SGOT 110 U/L (<40); Albumin 2.9 gm/dL (3.2-5.2); Albumin/Globulin Ratio 0.8 (1.0-2.3); Alkaline Phosphatase 67 U/L (39-117); Bilirubin,Direct < 0.2 mg/dL (0-0.3); Bilirubin,Total 0.2 mg/dL (0.1-1.0); Blood Urea Nitrogen 24 mg/dL (8-23); Calcium 8.5 mg/dL (8.6-10.4); Carbon Dioxide 23 mmol/L (22-30); Chloride 104 mmol/L (96-108); Globulin 3.5 gm/dL (2.2-3.7); Glomerular Filtration Rate 71; Glucose 117 mg/dL (70-105); Lactate Dehydrogenase 262 U/L (135-225); Phosphorous 2.5 mg/dL (2.5-4.5); Triglycerides 137 mg/dL (<150); Uric Acid 4.8 mg/dL (2.5-8.0)
--- NOTE | 2020-08-04 08:44 | Colonoscopy Procedure Note ---
PREOPERATIVE DIAGNOSIS: Ischemic colitis, right colon the source of bleeding. POSTOPERATIVE DIAGNOSES: 1. Ischemic colitis, resolved. 2. Diverticulosis. 3. History of inflammatory bowel disease, indeterminate, most recently more consistent with Crohn's disease. Earlier it seemed more consistent with ulcerative colitis. 4. 180-degree turn in the colon at about 20-25 cm with a pocket and granulation tissue that appears to be consistent with a [id number] anastomosis. However, the patient denies such abdominal surgery. However, he has had hernia surgery and perhaps something was nicked and repaired. The appearance of this abnormality in the colon appears most consistent with surgery because of the granulation tissue and the unusual 180-degree corner. PROCEDURE: Colonoscopy with biopsy. INSTRUMENT USED: [employer] [id number]. SPECIMENS OBTAINED: Biopsies from cecum and ascending colon to evaluate for any inflammation. INDICATIONS: The patient is an 80-year-old gentleman who does have a history of inflammatory bowel disease, most recently more consistent with Crohn's disease, but other tests have suggested ulcerative colitis. This was diagnosed in 2005. The most accurate thing is inflammatory bowel disease, type indeterminate. The patient a day or two ago, perhaps on the , was getting up from bed, had a sudden onset of black stool coming down his leg. He was incontinent. He felt weak. He was brought to the hospital. He was admitted. BUN was elevated at about 30, creatinine 1.2. Earlier the BUN had been 31, but another time it was 17. There was concern that he may have had an upper GI bleed. Endoscopy was accomplished in the stomach yesterday. There was a large polypoid mass that may or may not be cancer, high in the body. No ulcers were seen. There was a little esophagitis or EGitis. A CAT scan was done that showed some thickening in the ascending colon/hepatic flexure area. With the patient's sudden onset of bleeding and then improvement, and the CAT scan findings, I believe he probably had ischemic colitis. Colonoscopy is indicated to prove or disprove the ischemic colitis or a flare of inflammatory bowel disease. His hemoglobin I believe was down to 7.8. I believe he received some blood in transfusion. I am uncertain of the post-transfusion hemoglobin. The patient stated he has not bled any further since he has been in the hospital. INFORMED CONSENT: Time of informed consent 17:20. The procedure was reviewed with the patient. The patient had no further questions and accepts the risks and benefits thereof. One of the risks that were discussed included . Additional risks that were also discussed included bleeding, reaction to medication, possible perforation and possible need for surgery. IV MEDICATIONS USED: Versed 0, propofol 320 mg. ADDITIONAL COMMENTS: The exam was significantly prolonged because of the 180-degree turn in the sigmoid area that made it very difficult to advance the scope. Eventually with a different positioning and pressure and using a stiffening guidewire, the cecum was reached. There was some residual fecal matter, especially in the distal portion of the colon because of the diverticula. The right colon had some fecal matter, but not a tremendous amount. FINDINGS: RECTUM: Hemorrhoids were noted. SIGMOID AND DESCENDING COLON: At about 20-25 cm, there was a large pocket that appears to be consistent with a [id number] anastomosis; there is granulation tissue. The patient denies surgery on his colon; however, the endoscopic appearance strongly suggests he had surgery. Patient has had a hernia repair. It is possible there was some trauma to the colon and it was repaired and the patient does not recall this. Diverticula were noted in the residual sigmoid descending colon. SPLENIC FLEXURE: Normal. TRANSVERSE COLON: Normal. HEPATIC FLEXURE: I think a few diverticula were present. ASCENDING COLON: This appeared normal. CECUM: CECUM was identified by the ileocecal valve and the appendiceal dimple and the convergence of the taenia. TERMINAL ILEUM: Not visualized. Biopsies were taken from the cecum and ascending colon. RECOMMENDATIONS: Diet as allowed by the hospitalist. I have no objection to the patient being discharged in the morning, provided that he has no other medical reason to keep him here. I believe the bleeding has stopped and I believe ischemic colitis is significantly improved. He should continue his home medication for his inflammatory bowel disease. Further recommendations may be forthcoming after the pathology report has been reviewed. SEDATION TIME: 17:33-19:15. Please refer to the preprocedure nurse's notes, procedure flowsheet, procedure record, and post-procedure assessment for details of the sedation including the pre-, intra-, and post-service work. CRD:kh Job ID: [id number] Doc ID: [id number] Luis Glass MD
--- NOTE | 2020-08-04 09:02 | XRay Report ---
HISTORY: Maroon colored stools, possible GI bleeding, evaluate interval change FINDINGS: There is no recent study available for comparison. There is mild blunting of the left costophrenic sulcus which could be scar or atelectasis. Patient had a small left-side pleural effusion with mild basilar atelectasis seen on a prior chest x-ray done on 03/26/19. The remainder of the lung horner are clear. There is no right-sided effusion. Heart size is normal. Patient has two pacemakers with the power packs in the pectoral region bilaterally. There is no congestive heart failure. A large well-circumscribed pocket of air is seen in the right upper quadrant, overlying the liver and below the diaphragm. This was not seen on prior chest x-ray. This does not appear to be free air and could be within the hepatic flexure. IMPRESSION: Small scar versus atelectasis at the left costophrenic sulcus Interpreted and Authenticated by: Román Lynn 08/04/20
[2020-08-04] MEDS: DOCUSATE SODIUM 100 MG CAPSULE PO SCH (09:36)
--- NOTE | 2020-08-04 12:07 | Discharge Summary ---
Discharge Provider Provider Patient information: Note initiated : 08/04/20 at 12:02 pm Service Date, if different from initiated Date: [] Patient: Evgeny Gracia 80 y/o M admitted on 08/02/20 for Possible GI Bleed, Maroon Stools. Discharge diagnosis * GI bleed-underlying Crohn's disease/anticoagulation. However colonoscopy suggestive of ischemic colitis. No further bleed, abdominal pain. Discharging home with advised to resume anticoagulation in 48 hours. * Acute blood loss anemia requiring 2 units PRBC transfusion. Hemoglobin stable at 9.8. * History of hypertension restart antihypertensives until GI bleed improves * Anticoagulation for history of upper extremity DVT-on hold due to bleed for additional 48 hours * History of Crohn's disease on balsalazide/mercaptopurine, F/u with PCP. * History of bradycardia, paced rhythm. Asmptomatic. * CAD -restart Coreg/irbesartan * Anxiety disorder continue sertraline Brief hospital course Mr. 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 She also noticed blood in the commode. Patient was extremely weak and lightheaded however denies losing consciousness or seizure-like episode. He denies hurting himself at this gradually slid down on the floor while returning from bathroom. Per history he passed multiple bloody maroon stools with clots. Patient denies abdominal pain/bloody emesis. He is currently on rivaroxaban and aspirin. Patient was brought to the ER initial work-up was consistent with GI bleed and subsequently transitions manager rn Dr. Antunez was consulted for endoscopy evaluation. Patient was started on PPI/crystalloids. Stable hemodynamics. Hospital service was consulted for admission At the time of evaluation patient is accompanied with his Taisha. She was able to answer most the questions. Patient feels a lot better. Systolics 130. Doing a stat transfusion ordered. Denies chest pain, shortness of breath but endorses dizziness and weakness. He denies prior episodes of GI bleed. His Crohn's disease well controlled and has not had a hospitalization in the recent past 08/03-patient status post upper endoscopy and biopsies. No evidence source of bleed. Will undergo colonoscopy today. Ongoing prep. GI on board. No overnight fever chills. Hemoglobin stable. Status post units transfusion. Denies lightheadedness dizziness. No overnight telemetry events. On PPI. 08/04-patient doing well. No further episodes of GI bleed/colonoscopy possibly ischemic colitis. No active bleed. GI recommends discharging with advised to follow-up with primary care physician. Restart anticoagulation in 24 to 48 hours. No further drop in crit. Return to ER if worsening abdominal pain/bloody stool noted. Date of admission: 08/02/20 12:53 Discharge date: 08/04/20 Primary care physician: Milton Bynum M.D., F.A.A.F.P. Consults: 08/02/20 Consult to Physician [CONS] Stat Comment: Consulting Provider: Sukhjinder Shearer Reason For Exam: Physician to Consult Consult to Physician [CONS] Stat Comment: Consulting Provider: Luis Glass Reason For Exam: Physician to Consult Discharge Meds Discharge Medications Home Medications aspirin 81 mg PO DAILY 07/01/17 [History Confirmed 08/02/20 Last Taken Unknown] mercaptopurine 50 mg PO DAILY 07/01/17 [History Confirmed 08/02/20 Last Taken Unknown] cholecalciferol (vitamin D3) 125 mcg (5,000 unit) capsule 125 mcg PO QDAY 10/12/19 [History Confirmed 08/02/20 Last Taken Unknown] multivitamin 1 tab PO QAM 10/12/19 [History Confirmed 08/02/20 Last Taken Unknown] sertraline 25 mg tablet 25 mg PO DAILY #90 tab 10/13/19 [Rx Confirmed 08/02/20 Last Taken Unknown] folic acid 1 mg tablet 1 mg PO 3XW tab 11/23/19 [History Confirmed 08/02/20 Last Taken Unknown] mecobalamin (vitamin B12) 1,000 mcg chewable tablet 1,000 mcg PO 3XW tab 11/23/19 [History Confirmed 08/02/20 Last Taken Unknown] blood sugar diagnostic See Rx Instructions .ROUTE .COMPLEX #100 strip 03/20/20 [Rx Confirmed 08/02/20 Last Taken Unknown] rivaroxaban 10 mg tablet 10 mg PO QDAY #90 tab 03/23/20 [Rx Confirmed 08/02/20 Last Taken Unknown] bumetanide 1 mg tablet 1 mg PO BID tab 04/20/20 [History Confirmed 08/02/20 Last Taken Unknown] irbesartan 75 mg tablet 75 mg PO QDAY #90 tab 05/29/20 [Rx Confirmed 08/02/20 Last Taken Unknown] balsalazide 750 mg capsule 2,250 mg PO TID #810 cap 07/11/20 [Rx Confirmed 08/02/20 Last Taken Unknown] carvedilol 3.125 mg tablet See Rx Instructions .ROUTE .COMPLEX #180 tab 07/26/20 [Rx Confirmed 08/02/20 Last Taken Unknown] potassium chloride 20 meq PO BID 08/02/20 [History Confirmed 08/02/20 Last Taken Unknown] COURSE Hospital Course Hospital course: . Discharge diagnosis: Ischemic colitis, lower GI bleed Time Spent with Patient Time attestation: Total time spent providing and/or coordinating discharge services: EXAM Constitutional Vitals: Temp Pulse Resp BP Pulse Ox 98.1 F 71 20 140/72 99 08/04/20 08:01 08/04/20 10:05 08/04/20 10:05 08/04/20 10:05 08/04/20 10:05 Discharge Data Data Completed and Pending Labs on day of discharge: Labs from last 24 hours 08/04/20 08/04/20 08/03/20 05:25 05:25 16:15 WBC 7.5 RBC 3.61 L Hgb 9.8 L 9.7 L Hct 33.7 L MCV 93.4 MCH 27.1 MCHC 29.1 L RDW 19.5 H Plt Count 279 MPV 10.6 H Neut % (Auto) 77.3 Lymph % (Auto) 9.6 L [place] % (Auto) 11.5 Eos % (Auto) 1.2 Baso % (Auto) 0.4 Lymph # (Auto) 0.72 L [place] # (Auto) 0.86 Eos # (Auto) 0.09 Baso # (Auto) 0.03 Absolute Neutrophils 5.81 Sodium 138 Potassium 4.0 Chloride 104 Carbon Dioxide 23 Anion Gap 11.0 BUN 24 H Creatinine 1.0 GFR Calculation 71 Glucose 117 H Uric Acid 4.8 Calcium 8.5 L Phosphorus 2.5 Magnesium 2.1 Total Bilirubin 0.2 Direct Bilirubin < 0.2 GGT 19 AST 110 H ALT 38 Alkaline Phosphatase 67 Lactate Dehydrogenase 262 H Total Protein 6.4 Albumin 2.9 L Globulin 3.5 Albumin/Globulin Ratio 0.8 L Triglycerides 137 08/03/20 10:11 WBC RBC Hgb 9.2 L Hct MCV MCH MCHC RDW Plt Count MPV Neut % (Auto) Lymph % (Auto) [place] % (Auto) Eos % (Auto) Baso % (Auto) Lymph # (Auto) [place] # (Auto) Eos # (Auto) Baso # (Auto) Absolute Neutrophils Sodium Potassium Chloride Carbon Dioxide Anion Gap BUN Creatinine GFR Calculation Glucose Uric Acid Calcium Phosphorus Magnesium Total Bilirubin Direct Bilirubin GGT AST ALT Alkaline Phosphatase Lactate Dehydrogenase Total Protein Albumin Globulin Albumin/Globulin Ratio Triglycerides Discharge Plan Patient/Caregiver Discharge Instructions Activity: increase activity as tolerated Diet: Regular Diet Activity Restrictions/Additional Instructions: Follow-up PCP in 5 to 7 days Resume Xarelto in 48 hours Return to ER if dizziness lightheadedness abdominal discomfort/bloody stools noted Prescriptions: Continued sertraline 25 mg tablet 25 mg PO DAILY Qty: 90 RF: 3 blood sugar diagnostic [Contour Test Strips] Strip See Rx Instructions .ROUTE .COMPLEX Qty: 100 RF: 3 Xarelto 10 mg tablet 10 mg PO QDAY Qty: 90 RF: 4 irbesartan 75 mg tablet 75 mg PO QDAY Qty: 90 RF: 4 balsalazide 750 mg capsule 2,250 mg PO TID Qty: 810 RF: 0 carvedilol 3.125 mg tablet See Rx Instructions .ROUTE .COMPLEX Qty: 180 RF: 3 multivitamin [Multiple Vitamins] Tablet 1 tab PO QAM RF: 0 cholecalciferol (vitamin D3) 125 mcg (5,000 unit) capsule 125 mcg PO QDAY RF: 0 folic acid 1 mg tablet 1 mg PO 3XW RF: 0 mecobalamin (vitamin B12) 1,000 mcg tablet,chewable 1,000 mcg PO 3XW RF: 0 bumetanide 1 mg tablet 1 mg PO BID RF: 0 mercaptopurine 50 MG tablet 50 mg PO DAILY RF: 0 aspirin 81 MG tablet,chewable 81 mg PO DAILY RF: 0 potassium chloride 10 mEq tablet extended release 20 meq PO BID RF: 0 Follow Up Plan Follow up with: Milton Bynum MD, FAAFP [Primary Care Provider] - Patient Disposition: Home, Self-Care Prognosis: Fair Rehab Potential: Fair I certify that the patient requires SNF services: No Overall status at discharge: patient is progressing back to baseline Discharge Orders: Discharge Order (Routine); Ordered 08/04/20 Ordered By: Sukhjinder RALPH VTE Deep Vein Thrombosis/Pulmonary Embolism Present on Admission: No
--- NOTE | 2020-08-07 13:35 | Surgical Pathology Report ---
Histology Microscopic Diagnosis Specimen A- COLON, RIGHT AND CECUM, BIOPSIES: --- PORTIONS OF BENIGN MUCOSA WITH NO SPECIFIC DIAGNOSTIC CHANGE. --- NO ACTIVE INFLAMMATION OR SIGNIFICANT EPITHELIAL LYMPHOCYTOSIS IDENTIFIED. (ACP:adj) Clinical History GI bleed. Procedural Impression Ischemic colitis - resolved; diverticulosis; IBD - indeterminate Crohn's. Gross Description Received in formalin labeled right colon cecum, are three pale clancy tissue fragments 0.2 to 0.4 cm. Totally submitted in one cassette. (RAD:adj) Electronically Signed Jona Lynn MD, FCAP Electronically Signed 08/07/2020 13:34
--- NOTE | 2020-08-11 11:37 | Surgical Pathology Report ---
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 --- NO HELICOBACTER ORGANISMS IDENTIFIED ON ALCIAN YELLOW STAIN (ADEQUATE TECHNICAL CONTROL). Comments Specimen B - Sections contain polypoid fragments of gastric mucosa with crowded tubular glands that have patchy complex architecture. The glands are lined by epithelial cells with variable hyperchromasia and crowding. No high grade cytologic atypia, mitoses or necrosis are identified. No infiltrating malignant process is seen. The differential diagnosis for these findings includes a gastric adenoma and polypoid dysplasia. The case was sent to the [facility] for expert consultation where it was reviewed by Dr. lAeksandra Gr and colleagues. 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 They find no high grade dysplasia or carcinoma in the submitted sample. The above diagnosis reflects their opinion. Please see attached consultation report for complete details. Clinical History GI bleed. Procedural Impression Rule out H. pylori; large polyp/mass stomach; GERD; esophagitis. Gross Description Received in formalin labeled antrum biopsy, are two fragments of clancy tissue 0.4 and 0.5 cm. Totally submitted in one cassette. IHC Disclaimer Some of the tests reported may not have been cleared or approved by the U.S. Food Drug Administration (FDA). However, the FDA has determined that such clearance or approval is not necessary. Pursuant to the requirements of CLIA, this laboratory has established and verified the accuracy and precision of all tests, and additional information about these tests is available upon request. All technical controls are adequate. Electronically Signed Attachment Electronically Signed 08/11/2020 11:36
== END 2020-08-04 13:10 | disposition home or self-care (01) | DRG 386 ==
LOC: ED 07:36 → ICU 12:53 → INTOOBSV 12:53 → OBSVTOIN 12:53
PROVIDERS: ADMIT Internal Medicine; ATTEND Internal Medicine

== ENCOUNTER 2020-08-25 16:17 | Inpatient (IN) ==
[2020-08-25] MEDS ORDERED: 0.9 % SODIUM CHLORIDE 1,000 ML IV ONE (16:36)
[2020-08-25] MEDS ORDERED: cefTRIAXone 1 GM VIAL IV ONE (16:39)
--- NOTE | 2020-08-25 17:13 | XRay Report ---
INDICATION: weakness TECHNIQUE: AP portable upright chest x-ray COMPARISON: Previous chest x-rays dated 08/04/2020, 03/26/2019 FINDINGS:Right and left sided pacemakers with transvenous leads. Findings are unchanged Lungs:Lungs are negative. No focal pulmonary parenchymal infiltrate or mass Heart, vascular:No significant cardiomegaly. Pulmonary vascularity is normal. No pulmonary edema or pulmonary congestion Mediastinum, [place]:No mediastinal widening. No hilar mass Pleura:No pleural fluid. No pleural-based mass or calcification Skeletal:Negative. There is right convex thoracic scoliosis IMPRESSION: 1. No acute abnormality. 2. No interval change since 08/04/2020 Interpreted and Authenticated by: Mark Freeman 08/25/20
--- NOTE | 2020-08-25 17:28 | Emergency Department Note ---
HPI General Chief complaint: Weakness Stated complaint: fever and weakness Time Seen by Provider: 08/25/20 16:24 Source: patient Mode of arrival: ambulatory Limitations: no limitations History of Present Illness HPI Narrative: Narrative: Patient is an 80-year-old male who was seen 3 weeks ago for GI bleed and admitt ed. He was doing better until today when he felt sudden onset of weakness and chills. He has not had any cough or shortness of breath. No sore throat rash. He denies any urinary symptoms and has not had prior history of prostate infection. He denied any urinary catheterization when he was in for his previous hospitalization. He has not had any chest pain. He was uncertain of his prior blood sugars this week. Patient's notes that with his generalized weakness she was unable to help him get up and mobilize without calling for additional assistance. Patient did not have any fall or injury. Again he has not had any darker tarry stools and no hematemesis no nausea or vomiting. Related Data Home Medications Medication Instructions Recorded Confirmed aspirin 81 mg PO DAILY 07/01/17 08/14/20 mercaptopurine 50 mg PO DAILY 07/01/17 08/14/20 cholecalciferol (vitamin D3) 125 125 mcg PO QDAY 10/12/19 08/14/20 mcg (5,000 unit) capsule multivitamin 1 tab PO QAM 10/12/19 08/14/20 folic acid 1 mg tablet 1 mg PO 3XW tab 11/23/19 08/14/20 mecobalamin (vitamin B12) 1,000 1,000 mcg PO 3XW tab 11/23/19 08/14/20 mcg chewable tablet potassium chloride 20 meq PO BID 08/02/20 08/14/20 Previous Rx's Medication Instructions Recorded sertraline 25 mg tablet 25 mg PO DAILY #90 tab 10/13/19 blood sugar diagnostic See Rx Instructions .ROUTE 03/20/20 .COMPLEX #100 strip rivaroxaban 10 mg tablet 10 mg PO QDAY #90 tab 03/23/20 irbesartan 75 mg tablet 75 mg PO QDAY #90 tab 05/29/20 balsalazide 750 mg capsule 2,250 mg PO TID #810 cap 07/11/20 carvedilol 3.125 mg tablet See Rx Instructions .ROUTE 07/26/20 .COMPLEX #180 tab bumetanide 1 mg tablet 1 mg PO BID #180 tab 08/18/20 Allergies Allergy/AdvReac Type Severity Reaction Status Date / Time No Known Intolerances Allergy Unknown Other Verified 08/14/20 14:54 Review of Systems ROS ROS Narrative: Narrative: A 10 system review of systems was performed and found to be negative except as outlined above. FORMERLY [facility] Narrative Patient History Narrative: Narrative: Medical/Surgical/Family History All Active Problems (Updated 08/25/20 @ 21:43 by Frankie Donald MD) Dehydration (Acute) Weakness (Acute) GI bleed (Acute) Rectal bleeding (Acute) Diabetes mellitus with hyperglycemia (Acute) Low back pain (Acute) Basal cell carcinoma (BCC) of skin of nose (Chronic ~10/27/17) Hemorrhoids (Chronic) Hay fever (Chronic) Pneumonia (Chronic) Measles (Chronic) Acute systolic CHF (congestive heart failure), NYHA class 1 (Chronic) Major depressive disorder, single episode, mild (Chronic) Chronic systolic (congestive) heart failure (Chronic) Pulmonary arterial hypertension (Chronic) Mitral insufficiency (Chronic) Sick sinus syndrome (Chronic) 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) Personal history of diseases of the skin and subcutaneous tissue (Chronic) Other hemoglobinopathies (Chronic) Chronic fatigue (Chronic) Benign prostatic hyperplasia without lower urinary tract symptoms (Chronic) 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) Left sided colitis without complications (Chronic) CKD (chronic kidney disease), stage II (Chronic) Right bundle branch block (Chronic) Dry eye syndrome of both eyes (Chronic) Unspecified ptosis of bilateral eyelids (Chronic) Contraction, 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) Conductive hearing loss, bilateral (Chronic) 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) Other ulcerative colitis without complications (Chronic) Anxiety (Chronic) Hernia (Chronic) Cataract (Chronic) Kidney stones (Chronic ~07/2019) High cholesterol (Chronic ~1989) High blood pressure (Chronic ~1994) History of blood clots (Chronic ~07/2018) Crohn's disease (Chronic) Skin cancer (Chronic) Diabetes mellitus, type II (Chronic) Left upper extremity swelling (Chronic) Subclavian vein thrombosis, left (Chronic) Pacemaker (Chronic ~07/2017) Prediabetes (Chronic) Inflammatory bowel disease (Chronic) Bradycardia (Chronic) Medical History (Updated 08/25/20 @ 21:43 by Frankie Donald MD) Acute systolic CHF (congestive heart failure), NYHA class 1 Anxiety Basal cell carcinoma (BCC) of skin of nose (~10/27/17) Benign prostatic hyperplasia without lower urinary tract symptoms Bradycardia Cataract 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 Chronic fatigue Chronic systolic (congestive) heart failure CKD (chronic kidney disease), stage II Conductive hearing loss, bilateral Contraction, premature ventricular Crohn's disease Diabetes mellitus with hyperglycemia Diabetes mellitus, type II Dry eye syndrome of both eyes ED (erectile dysfunction) of non-organic origin GI bleed Hay fever Hemorrhoids Hernia High blood pressure (~1994) High cholesterol (~1989) History of blood clots (~07/2018) Inflammatory bowel disease Kidney stones (~07/2019) Left sided colitis without complications Left upper extremity swelling Low back pain Major depressive disorder, single episode, mild Measles Mitral insufficiency Other hemoglobinopathies Other ulcerative colitis without complications Pacemaker (~07/2017) Personal history of diseases of the skin and subcutaneous tissue H/O sebaceous epithelioma, 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 Unspecified ptosis of bilateral eyelids Vertebro-basilar artery syndrome Surgical History History of cataract extraction (~2014) History of colonoscopy (~12/2008) History of eye surgery (~2016) History of hernia repair 1994; 2002 History of pacemaker (~08/13/17) 2017; 2019 History of strabismus surgery (~2016) Status post surgical removal of malignant neoplasm of skin (~2018) Right Cheek Family History Sister Ovarian cancer Father High blood pressure Heart attack Social History Smoking Status: Never smoker Alcohol Intake Frequency: a few times a month Substance Use: does not use Exam Narrative Narrative: Narrative: General: Alert, mildly weaker puny appearing. Responds to questions appropriately without apparent dyspnea. Supportive at bedside. HEENT: NCAT, PERRL, Oral pharynx with moist mucus membranes. No pharyngeal erythema. No conjunctival pallor Neck: Supple, No lymphadenopathy Chest: Stable. Bilateral subclavian pacemakers in place Heart: Regular rate and rhythm without murmur Lungs: Clear to auscultation bilaterally Abdomen: Soft, nondistended, nontender : No bladder distention Back: Nontraumatic, No CVA tenderness to palpation. Skin: No rash or lesion Extremity: No cyanosis, there is trace pretibial bilateral lower extremity edema, pulses 1+ radial Neurologic: Moves all extremities in appropriate coordinated fashion. General Limitations: no limitations Course Vital Signs Vital signs: Vital Signs Temperature 101.1 F H 08/25/20 16:19 Pulse Rate 98 H 08/25/20 16:19 Respiratory Rate 18 08/25/20 16:19 Blood Pressure 126/61 08/25/20 16:19 Pulse Oximetry (%) 96 08/25/20 16:19 Temperature 98.7 F 08/25/20 20:34 Pulse Rate 80 08/25/20 21:16 Respiratory Rate 18 08/25/20 20:01 Blood Pressure 99/48 08/25/20 21:16 Pulse Oximetry (%) 95 08/25/20 21:16 MDM MDM Narrative Medical decision making narrative: Narrative: Patient presents with acute weakness. There was no focal weakness. He is without evidence of pneumonia. Certainly he has some continued anemia but no acute GI bleed is apparent. He was given IV fluids here has been ambulatory about the department feeling back to his baseline. His states that she feels comfortable and taking him home. They have ability to return for any new or worsening symptoms. Given the improvement with IV fluids certainly he could have been with some degree of dehydration. There is no significant electrolyte abnormality to describe the weakness. He was with the finding of troponin 0.03 and I discussed with them the potential for admission and recheck for cardiology related aspect. We elected to do a repeat troponin which comes back normal and reassuring. At this time I believe the patient can be discharged with further outpatient follow-up. I can no evidence of urinary tract infection. His influenza and Covid test were negative. His pacemaker is with good capture and he will touch base with his primary care provider for follow-up interrogation of the pacemaker. Given that he arrived feeling weak and the pacemaker and his heart rate were appropriate I do not feel that there was any bradycardia or likely underlying arrhythmia as cause for his symptoms which again improved while here in the emergency department after IV fluids and p.o. intake. ECG time 1646 demonstrates paced rhythm that appears to be atrial sensed and ventricular paced. There is additional ventricular complexes intermittently. No further evaluation possible secondary to paced rhythm with overall good capture. chest x-ray: Date of Service: 08/25/20 Procedure(s): XR chest 1V portable Accession Number(s): [id number] INDICATION: weakness TECHNIQUE: AP portable upright chest x-ray COMPARISON: Previous chest x-rays dated 08/04/2020, 03/26/2019 FINDINGS:Right and left sided pacemakers with transvenous leads. Findings are unchanged Lungs:Lungs are negative. No focal pulmonary parenchymal infiltrate or mass Heart, vascular:No significant cardiomegaly. Pulmonary vascularity is normal. No pulmonary edema or pulmonary congestion Mediastinum, [place]:No mediastinal widening. No hilar mass Pleura:No pleural fluid. No pleural-based mass or calcification Skeletal:Negative. There is right convex thoracic scoliosis IMPRESSION: 1. No acute abnormality. 2. No interval change since 08/04/2020 Interpreted and Authenticated by: Mark Freeman 08/25/20 Lab Data Result diagrams: 08/25/20 20:03 08/25/20 16:38 Labs: Lab Results 08/25/20 08/25/20 08/25/20 Range/Units 16:37 16:37 16:37 WBC 17.4 H (4.5-11.0) K/mcL RBC 3.69 L (4.50-5.90) M/mcL Hgb 9.9 L (13.5-16.5) g/dL Hct 32.8 L (41.0-55.0) % POC Hct (41-55) % MCV 88.9 (80.0-100.0) fL MCH 26.8 (26.0-34.0) pg MCHC 30.2 L (31.0-36.0) g/dL RDW 18.3 H (11.5-14.5) % Plt Count 321 (140-440) K/mcL MPV 10.7 H (7.4-10.4) fL Neut % (Auto) 92.3 H (38.0-78.0) % Lymph % (Auto) 1.3 L (15.0-49.0) % [place] % (Auto) 6.0 (1.0-12.0) % Eos % (Auto) 0.1 (0.0-7.0) % Baso % (Auto) 0.3 (0.0-2.0) % Lymph # (Auto) 0.22 L (1.50-4.80) K/mcL [place] # (Auto) 1.04 H (0.10-0.90) K/mcL Eos # (Auto) 0.02 (0.00-0.70) K/mcL Baso # (Auto) 0.06 (0.00-0.20) K/mcL Absolute Neutrophils 16.04 H (1.80-8.00) K/mcL PT 14.9 H (11.9-14.5) sec INR 1.1 (0.9-1.1) APTT 40.4 H (20.0-37.0) sec VBG Lactic Acid 1.1 (0.5-2.0) mmol/L POC Sodium (133-145) mEq/L Sodium (133-145) mmol/L POC Potassium (3.3-5.1) mEql/L Potassium (3.3-5.1) mmol/L POC Chloride (96-108) mEq/L Chloride (96-108) mmol/L Carbon Dioxide (22-30) mmol/L POC Total CO2 (22-30) mmol/L Anion Gap (8.0-16.0) POC BUN (6-20) mg/dL BUN (8-23) mg/dL Creatinine (0.7-1.2) mg/dL POC Creatinine (0.6-1.2) mg/dL GFR Calculation Glucose (70-105) mg/dL POC Glucose (70-105) mg/dL Calcium (8.6-10.4) mg/dL POC WB Ioniz Calcium (1.16-1.32) mmEq/L Total Bilirubin (0.1-1.0) mg/dL AST (<40) U/L ALT (<40) U/L Alkaline Phosphatase (39-117) U/L Troponin T (<0.03) ng/mL NT-Pro-B Natriuret Pep (<450.0) pg/mL Total Protein (5.9-8.4) gm/dL Albumin (3.2-5.2) gm/dL Globulin (2.2-3.7) gm/dL Albumin/Globulin Ratio (1.0-2.3) Urine Color Urine Appearance (Clear) Urine pH (5.0-9.0) Ur Specific [place] (1.000-1.035) Urine Protein (Negative) mg/dL Urine Glucose (UA) (Negative) mg/dL Urine Ketones (Negative) mg/dL Urine Occult Blood (Negative) mg/dL Urine Nitrate (Negative) Urine Bilirubin (Negative) mg/dL Urine Urobilinogen mg/dL Ur Leukocyte Esterase (Negative) /ug Ur Culture Indicated? 08/25/20 08/25/20 08/25/20 Range/Units 16:37 16:38 17:05 WBC (4.5-11.0) K/mcL RBC (4.50-5.90) M/mcL Hgb (13.5-16.5) g/dL Hct (41.0-55.0) % POC Hct (41-55) % MCV (80.0-100.0) fL MCH (26.0-34.0) pg MCHC (31.0-36.0) g/dL RDW (11.5-14.5) % Plt Count (140-440) K/mcL MPV (7.4-10.4) fL Neut % (Auto) (38.0-78.0) % Lymph % (Auto) (15.0-49.0) % [place] % (Auto) (1.0-12.0) % Eos % (Auto) (0.0-7.0) % Baso % (Auto) (0.0-2.0) % Lymph # (Auto) (1.50-4.80) K/mcL [place] # (Auto) (0.10-0.90) K/mcL Eos # (Auto) (0.00-0.70) K/mcL Baso # (Auto) (0.00-0.20) K/mcL Absolute Neutrophils (1.80-8.00) K/mcL PT (11.9-14.5) sec INR (0.9-1.1) APTT (20.0-37.0) sec VBG Lactic Acid (0.5-2.0) mmol/L POC Sodium (133-145) mEq/L Sodium 135 (133-145) mmol/L POC Potassium (3.3-5.1) mEql/L Potassium 4.5 (3.3-5.1) mmol/L POC Chloride (96-108) mEq/L Chloride 99 (96-108) mmol/L Carbon Dioxide 25 (22-30) mmol/L POC Total CO2 (22-30) mmol/L Anion Gap 11.0 (8.0-16.0) POC BUN (6-20) mg/dL BUN 30 H (8-23) mg/dL Creatinine 1.3 H (0.7-1.2) mg/dL POC Creatinine (0.6-1.2) mg/dL GFR Calculation 51 Glucose 157 H (70-105) mg/dL POC Glucose (70-105) mg/dL Calcium 9.4 (8.6-10.4) mg/dL POC WB Ioniz Calcium (1.16-1.32) mmEq/L Total Bilirubin 0.3 (0.1-1.0) mg/dL AST 14 (<40) U/L ALT 8 (<40) U/L Alkaline Phosphatase 67 (39-117) U/L Troponin T 0.03 H (<0.03) ng/mL NT-Pro-B Natriuret Pep 6016.0 H (<450.0) pg/mL Total Protein 7.3 (5.9-8.4) gm/dL Albumin 3.5 (3.2-5.2) gm/dL Globulin 3.8 H (2.2-3.7) gm/dL Albumin/Globulin Ratio 0.9 L (1.0-2.3) Urine Color Yellow Urine Appearance Clear (Clear) Urine pH 7.0 (5.0-9.0) Ur Specific [place] 1.019 (1.000-1.035) Urine Protein Negative (Negative) mg/dL Urine Glucose (UA) Negative (Negative) mg/dL Urine Ketones Negative (Negative) mg/dL Urine Occult Blood Negative (Negative) mg/dL Urine Nitrate Negative (Negative) Urine Bilirubin Negative (Negative) mg/dL Urine Urobilinogen Negative mg/dL Ur Leukocyte Esterase Negative (Negative) /ug Ur Culture Indicated? No 08/25/20 08/25/20 08/25/20 Range/Units 20:02 20:02 20:03 WBC 16.2 H (4.5-11.0) K/mcL RBC 3.34 L (4.50-5.90) M/mcL Hgb 9.0 L (13.5-16.5) g/dL Hct 29.5 L (41.0-55.0) % POC Hct 30 L (41-55) % MCV 88.3 (80.0-100.0) fL MCH 26.9 (26.0-34.0) pg MCHC 30.5 L (31.0-36.0) g/dL RDW 18.3 H (11.5-14.5) % Plt Count 304 (140-440) K/mcL MPV 10.7 H (7.4-10.4) fL Neut % (Auto) 89.5 H (38.0-78.0) % Lymph % (Auto) 4.0 L (15.0-49.0) % [place] % (Auto) 5.9 (1.0-12.0) % Eos % (Auto) 0.2 (0.0-7.0) % Baso % (Auto) 0.4 (0.0-2.0) % Lymph # (Auto) 0.65 L (1.50-4.80) K/mcL [place] # (Auto) 0.96 H (0.10-0.90) K/mcL Eos # (Auto) 0.03 (0.00-0.70) K/mcL Baso # (Auto) 0.07 (0.00-0.20) K/mcL Absolute Neutrophils 14.44 H (1.80-8.00) K/mcL PT (11.9-14.5) sec INR (0.9-1.1) APTT (20.0-37.0) sec VBG Lactic Acid (0.5-2.0) mmol/L POC Sodium 137 (133-145) mEq/L Sodium (133-145) mmol/L POC Potassium 4.2 (3.3-5.1) mEql/L Potassium (3.3-5.1) mmol/L POC Chloride 104 (96-108) mEq/L Chloride (96-108) mmol/L Carbon Dioxide (22-30) mmol/L POC Total CO2 25 (22-30) mmol/L Anion Gap (8.0-16.0) POC BUN 23 H (6-20) mg/dL BUN (8-23) mg/dL Creatinine (0.7-1.2) mg/dL POC Creatinine 0.9 (0.6-1.2) mg/dL GFR Calculation Glucose (70-105) mg/dL POC Glucose 116 H (70-105) mg/dL Calcium (8.6-10.4) mg/dL POC WB Ioniz Calcium 1.18 (1.16-1.32) mmEq/L Total Bilirubin (0.1-1.0) mg/dL AST (<40) U/L ALT (<40) U/L Alkaline Phosphatase (39-117) U/L Troponin T 0.02 (<0.03) ng/mL NT-Pro-B Natriuret Pep (<450.0) pg/mL Total Protein (5.9-8.4) gm/dL Albumin (3.2-5.2) gm/dL Globulin (2.2-3.7) gm/dL Albumin/Globulin Ratio (1.0-2.3) Urine Color Urine Appearance (Clear) Urine pH (5.0-9.0) Ur Specific [place] (1.000-1.035) Urine Protein (Negative) mg/dL Urine Glucose (UA) (Negative) mg/dL Urine Ketones (Negative) mg/dL Urine Occult Blood (Negative) mg/dL Urine Nitrate (Negative) Urine Bilirubin (Negative) mg/dL Urine Urobilinogen mg/dL Ur Leukocyte Esterase (Negative) /ug Ur Culture Indicated? ED POC Tests ED POC Tests: DARREL - Influenza A Negative DARREL - Influenza B Negative DARREL - SARS Antigen Negative Discharge Plan Patient/Caregiver Discharge Instructions Pt seen by ASSOCIATE PROFESSOR OF GEOGRAPHY/PA only: No Clinical Impression: Dehydration, Weakness Instructions: Dehydration (ED), Weakness (ED) Patient Disposition: Home, Self-Care Condition: Fair Follow up with: Milton Bynum MD, FAAFP [Primary Care Provider] - Prescriptions: No Action sertraline 25 mg tablet 25 mg PO DAILY Qty: 90 RF: 3 blood sugar diagnostic [Contour Test Strips] Strip See Rx Instructions .ROUTE .COMPLEX Qty: 100 RF: 3 Xarelto 10 mg tablet 10 mg PO QDAY Qty: 90 RF: 4 irbesartan 75 mg tablet 75 mg PO QDAY Qty: 90 RF: 4 balsalazide 750 mg capsule 2,250 mg PO TID Qty: 810 RF: 0 carvedilol 3.125 mg tablet See Rx Instructions .ROUTE .COMPLEX Qty: 180 RF: 3 bumetanide 1 mg tablet 1 mg PO BID Qty: 180 RF: 4 multivitamin [Multiple Vitamins] Tablet 1 tab PO QAM RF: 0 cholecalciferol (vitamin D3) 125 mcg (5,000 unit) capsule 125 mcg PO QDAY RF: 0 folic acid 1 mg tablet 1 mg PO 3XW RF: 0 mecobalamin (vitamin B12) 1,000 mcg tablet,chewable 1,000 mcg PO 3XW RF: 0 mercaptopurine 50 MG tablet 50 mg PO DAILY RF: 0 aspirin 81 MG tablet,chewable 81 mg PO DAILY RF: 0 potassium chloride 10 mEq tablet extended release 20 meq PO BID RF: 0
[2020-08-25] MEDS ORDERED: LACTATED RINGERS 1,000 ML IV ONE ×2 (17:29→19:43)
[2020-08-25] MEDS ORDERED: ACETAMINOPHEN 325 MG TABLET PO ONE (17:29)
[2020-08-25 17:53] LABS: Basophils # (Auto) 0.06 K/mcL (0.00-0.20); Basophils % (Auto) 0.3 % (0.0-2.0); Eosinophils # (Auto) 0.02 K/mcL (0.00-0.70); Eosinophils % (Auto) 0.1 % (0.0-7.0); Hematocrit 32.8 % (41.0-55.0); Hemoglobin 9.9 g/dL (13.5-16.5); Lymphocytes # (Auto) 0.22 K/mcL (1.50-4.80); Lymphocytes % (Auto) 1.3 % (15.0-49.0); Mean Cell Volume 88.9 fL (80.0-100.0); Mean Corpuscular HGB Conc 30.2 g/dL (31.0-36.0); Mean Platelet Volume 10.7 fL (7.4-10.4); Monocytes # (Auto) 1.04 K/mcL (0.10-0.90); Neutrophils % (Auto) 92.3 % (38.0-78.0); Platelet Count 321 K/mcL (140-440); RBC 3.69 M/mcL (4.50-5.90); Red Cell Distribution Width 18.3 % (11.5-14.5); WBC 17.4 K/mcL (4.5-11.0)
[2020-08-25 18:02] LABS: Appearance,Urine CLEAR (Clear); Bilirubin,Urine Negative (Negative); Color,Urine YELLOW; Culture Indicated,Urine No; Glucose,Urine (UA) Negative (Negative); Ketones,Urine Negative (Negative); Leukocyte Esterase,Urine Negative /ug (Negative); Nitrate,Urine Negative (Negative); Protein,Urine Negative (Negative); Specific Gravity,Urine 1.019 (1.000-1.035); Urine Blood Negative (Negative); Urobilinogen,Urine Negative
[2020-08-25 18:21] LABS: Partial Thromboplastin Time 40.4 sec (20.0-37.0)
[2020-08-25 18:22] LABS: INR 1.1 (0.9-1.1); Prothrombin Time 14.9 sec (11.9-14.5)
[2020-08-25 18:54] LABS: ALT/SGPT 8 U/L (<40); AST/SGOT 14 U/L (<40); Albumin 3.5 gm/dL (3.2-5.2); Albumin/Globulin Ratio 0.9 (1.0-2.3); Alkaline Phosphatase 67 U/L (39-117); Bilirubin,Total 0.3 mg/dL (0.1-1.0); Blood Urea Nitrogen 30 mg/dL (8-23); Calcium 9.4 mg/dL (8.6-10.4); Carbon Dioxide 25 mmol/L (22-30); Chloride 99 mmol/L (96-108); Globulin 3.8 gm/dL (2.2-3.7); Glomerular Filtration Rate 51; Glucose 157 mg/dL (70-105)
[2020-08-25 20:15] LABS: POC Blood Urea Nitrogen 23 mg/dL (6-20); POC CO2 25 mmol/L (22-30); POC Calcium, Ionized 1.18 mmEq/L (1.16-1.32); POC Chloride 104 mEq/L (96-108); POC Creatinine 0.9 mg/dL (0.6-1.2); POC Glucose, Random 116 mg/dL (70-105); POC Hematocrit 30 % (41-55); POC Potassium 4.2 mEql/L (3.3-5.1); POC Sodium 137 mEq/L (133-145)
[2020-08-25 20:47] LABS: Basophils # (Auto) 0.07 K/mcL (0.00-0.20); Basophils % (Auto) 0.4 % (0.0-2.0); Eosinophils # (Auto) 0.03 K/mcL (0.00-0.70); Eosinophils % (Auto) 0.2 % (0.0-7.0); Hematocrit 29.5 % (41.0-55.0); Lymphocytes # (Auto) 0.65 K/mcL (1.50-4.80); Mean Cell Volume 88.3 fL (80.0-100.0); Mean Corpuscular HGB Conc 30.5 g/dL (31.0-36.0); Mean Platelet Volume 10.7 fL (7.4-10.4); Monocytes # (Auto) 0.96 K/mcL (0.10-0.90); Monocytes % (Auto) 5.9 % (1.0-12.0); Neutrophils % (Auto) 89.5 % (38.0-78.0); Platelet Count 304 K/mcL (140-440); RBC 3.34 M/mcL (4.50-5.90); Red Cell Distribution Width 18.3 % (11.5-14.5); WBC 16.2 K/mcL (4.5-11.0)
--- NOTE | 2020-08-25 23:27 | Internal Med History&Physical ---
HPI History of Present Illness Patient information: Note initiated : 08/25/20 at 11:06 pm Service Date, if different from initiated Date: [] Patient: Evgeny Garcia 80 y/o M admitted on for fever and weakness. Chief Complaint: [] History of present illness: Mr. Garcia is a 80 year old with a history of HFrEF, status post AICD, history of DVT, history of Crohn's disease (on mercaptopurine and balsalazide) presented to the ED for chills and fevers. In the ED the patient does not have a fever as well as cytosis. Work-up including chest x- raynegative, UAnegative, blood cultures pending. Lactic acid was normal. Physical exam is mostly unremarkable except wounds on the patient's upper extremities inflicted by a puppy. One of the wounds was weeping some fluid but not purulent and no cellulitis. The other wounds appear to be healing well. The patient also has an acute on chronic kidney disease injury. He was admitted for sepsis of unknown source. Review of systems Constitutional: positive for chills, fever, fatigue Eyes: no vision changes or pain Cardiovascular: no chest pain, no palpitations Respiratory: no cough or dyspnea Gastrointestinal: no abdominal pain, no nausea, vomiting, or diarrhea Genitourinary: no dysuria or difficulty voiding Musculoskeletal: no arthralgia or myalgia Integumentary: positive for upper extremity wounds from puppy Neurological: no focal weakness or numbness Psychiatric: no anxiety or depression PFSH PFSH All Active Problems (Updated 08/25/20 @ 21:43 by Frankie Donald MD) Dehydration (Acute) Weakness (Acute) GI bleed (Acute) Rectal bleeding (Acute) Diabetes mellitus with hyperglycemia (Acute) Low back pain (Acute) Basal cell carcinoma (BCC) of skin of nose (Chronic ~10/27/17) Hemorrhoids (Chronic) Hay fever (Chronic) Pneumonia (Chronic) Measles (Chronic) Acute systolic CHF (congestive heart failure), NYHA class 1 (Chronic) Major depressive disorder, single episode, mild (Chronic) Chronic systolic (congestive) heart failure (Chronic) Pulmonary arterial hypertension (Chronic) Mitral insufficiency (Chronic) Sick sinus syndrome (Chronic) 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) Personal history of diseases of the skin and subcutaneous tissue (Chronic) Other hemoglobinopathies (Chronic) Chronic fatigue (Chronic) Benign prostatic hyperplasia without lower urinary tract symptoms (Chronic) 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) Left sided colitis without complications (Chronic) CKD (chronic kidney disease), stage II (Chronic) Right bundle branch block (Chronic) Dry eye syndrome of both eyes (Chronic) Unspecified ptosis of bilateral eyelids (Chronic) Contraction, 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) Conductive hearing loss, bilateral (Chronic) 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) Other ulcerative colitis without complications (Chronic) Anxiety (Chronic) Hernia (Chronic) Cataract (Chronic) Kidney stones (Chronic ~07/2019) High cholesterol (Chronic ~1989) High blood pressure (Chronic ~1994) History of blood clots (Chronic ~07/2018) Crohn's disease (Chronic) Skin cancer (Chronic) Diabetes mellitus, type II (Chronic) Left upper extremity swelling (Chronic) Subclavian vein thrombosis, left (Chronic) Pacemaker (Chronic ~07/2017) Prediabetes (Chronic) Inflammatory bowel disease (Chronic) Bradycardia (Chronic) Medical History (Updated 08/25/20 @ 21:43 by Frankie Donald MD) Acute systolic CHF (congestive heart failure), NYHA class 1 Anxiety Basal cell carcinoma (BCC) of skin of nose (~10/27/17) Benign prostatic hyperplasia without lower urinary tract symptoms Bradycardia Cataract 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 Chronic fatigue Chronic systolic (congestive) heart failure CKD (chronic kidney disease), stage II Conductive hearing loss, bilateral Contraction, premature ventricular Crohn's disease Diabetes mellitus with hyperglycemia Diabetes mellitus, type II Dry eye syndrome of both eyes ED (erectile dysfunction) of non-organic origin GI bleed Hay fever Hemorrhoids Hernia High blood pressure (~1994) High cholesterol (~1989) History of blood clots (~07/2018) Inflammatory bowel disease Kidney stones (~07/2019) Left sided colitis without complications Left upper extremity swelling Low back pain Major depressive disorder, single episode, mild Measles Mitral insufficiency Other hemoglobinopathies Other ulcerative colitis without complications Pacemaker (~07/2017) Personal history of diseases of the skin and subcutaneous tissue H/O sebaceous epithelioma, 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 Unspecified ptosis of bilateral eyelids Vertebro-basilar artery syndrome Surgical History History of cataract extraction (~2014) History of colonoscopy (~12/2008) History of eye surgery (~2017) History of hernia repair 1994; 2002 History of pacemaker (~08/13/17) 2017; 2019 History of strabismus surgery (~2016) Status post surgical removal of malignant neoplasm of skin (~2018) Right Cheek Family History Sister Ovarian cancer Father High blood pressure Heart attack Social History marital status: occupational status: retired alcohol intake frequency: a few times a month substance use type: does not use MEDS/ALLERGIES Home Medications and Allergies Home Medications Medication Instructions Recorded Confirmed Type aspirin 81 mg PO DAILY 07/01/17 08/25/20 History mercaptopurine 50 mg PO DAILY 07/01/17 08/25/20 History cholecalciferol (vitamin D3) 125 125 mcg PO QDAY 10/12/19 08/14/20 History mcg (5,000 unit) capsule multivitamin 1 tab PO QAM 10/12/19 08/25/20 History sertraline 25 mg tablet 25 mg PO DAILY #90 tab 10/13/19 08/14/20 Rx folic acid 1 mg tablet 800 mcg PO 3XW tab 11/23/19 08/25/20 History mecobalamin (vitamin B12) 1,000 1,000 mcg PO 3XW tab 11/23/19 08/14/20 History mcg chewable tablet blood sugar diagnostic See Rx Instructions .ROUTE 03/20/20 08/14/20 Rx .COMPLEX #100 strip rivaroxaban 10 mg tablet 10 mg PO QDAY #90 tab 03/23/20 08/25/20 Rx irbesartan 75 mg tablet 75 mg PO QDAY #90 tab 05/29/20 08/25/20 Rx balsalazide 750 mg capsule 2,250 mg PO TID #810 cap 07/11/20 08/25/20 Rx potassium chloride 20 meq PO BID 08/02/20 08/25/20 History bumetanide 1 mg tablet 1 mg PO BID #180 tab 08/18/20 08/25/20 Rx carvedilol 3.125 mg PO BID 08/25/20 History Allergies Allergy/AdvReac Type Severity Reaction Status Date / Time No Known Intolerances Allergy Unknown Other Verified 08/14/20 14:54 EXAM Constitutional Vitals: Temp Pulse Resp BP Pulse Ox 98.7 F 81 18 117/57 97 08/25/20 20:34 08/25/20 21:31 08/25/20 20:01 08/25/20 21:31 08/25/20 21:31 Additional findings Additional findings: Head: Atraumatic, normal inspection. Eyes: normal appearance, no scleral icterus. Neck: full ROM Respiratory: no respiratory distress. Cardiovascular: normal rate and rhythm, systolic murmur present, bilateral pacemakers present GI/Abdominal: soft, nontender, no guarding. Extremities: full range of motion, nontender. Neurological: CN II-XII intact, intact motor, intact sensation. Psychiatric: normal mood. Skin: one wound on right forearm weeping serous fluid, multiple wounds on bilateral upper extremities healing well DATA Data Completed and Pending Labs: Labs from last 24 hours 08/25/20 08/25/20 08/25/20 20:03 20:02 20:02 WBC 16.2 H RBC 3.34 L Hgb 9.0 L Hct 29.5 L POC Hct 30 L MCV 88.3 MCH 26.9 MCHC 30.5 L RDW 18.3 H Plt Count 304 MPV 10.7 H Neut % (Auto) 89.5 H Lymph % (Auto) 4.0 L [place] % (Auto) 5.9 Eos % (Auto) 0.2 Baso % (Auto) 0.4 Lymph # (Auto) 0.65 L [place] # (Auto) 0.96 H Eos # (Auto) 0.03 Baso # (Auto) 0.07 Absolute Neutrophils 14.44 H PT INR APTT VBG Lactic Acid POC Sodium 137 Sodium POC Potassium 4.2 Potassium POC Chloride 104 Chloride Carbon Dioxide POC Total CO2 25 Anion Gap POC BUN 23 H BUN Creatinine POC Creatinine 0.9 GFR Calculation Glucose POC Glucose 116 H Calcium POC WB Ioniz Calcium 1.18 Total Bilirubin AST ALT Alkaline Phosphatase Troponin T 0.02 NT-Pro-B Natriuret Pep Total Protein Albumin Globulin Albumin/Globulin Ratio Urine Color Urine Appearance Urine pH Ur Specific [place] Urine Protein Urine Glucose (UA) Urine Ketones Urine Occult Blood Urine Nitrate Urine Bilirubin Urine Urobilinogen Ur Leukocyte Esterase Ur Culture Indicated? 08/25/20 08/25/20 08/25/20 17:05 16:38 16:37 WBC RBC Hgb Hct POC Hct MCV MCH MCHC RDW Plt Count MPV Neut % (Auto) Lymph % (Auto) [place] % (Auto) Eos % (Auto) Baso % (Auto) Lymph # (Auto) [place] # (Auto) Eos # (Auto) Baso # (Auto) Absolute Neutrophils PT INR APTT VBG Lactic Acid POC Sodium Sodium 135 POC Potassium Potassium 4.5 POC Chloride Chloride 99 Carbon Dioxide 25 POC Total CO2 Anion Gap 11.0 POC BUN BUN 30 H Creatinine 1.3 H POC Creatinine GFR Calculation 51 Glucose 157 H POC Glucose Calcium 9.4 POC WB Ioniz Calcium Total Bilirubin 0.3 AST 14 ALT 8 Alkaline Phosphatase 67 Troponin T 0.03 H NT-Pro-B Natriuret Pep 6016.0 H Total Protein 7.3 Albumin 3.5 Globulin 3.8 H Albumin/Globulin Ratio 0.9 L Urine Color Yellow Urine Appearance Clear Urine pH 7.0 Ur Specific [place] 1.019 Urine Protein Negative Urine Glucose (UA) Negative Urine Ketones Negative Urine Occult Blood Negative Urine Nitrate Negative Urine Bilirubin Negative Urine Urobilinogen Negative Ur Leukocyte Esterase Negative Ur Culture Indicated? No 08/25/20 08/25/20 08/25/20 16:37 16:37 16:37 WBC 17.4 H RBC 3.69 L Hgb 9.9 L Hct 32.8 L POC Hct MCV 88.9 MCH 26.8 MCHC 30.2 L RDW 18.3 H Plt Count 321 MPV 10.7 H Neut % (Auto) 92.3 H Lymph % (Auto) 1.3 L [place] % (Auto) 6.0 Eos % (Auto) 0.1 Baso % (Auto) 0.3 Lymph # (Auto) 0.22 L [place] # (Auto) 1.04 H Eos # (Auto) 0.02 Baso # (Auto) 0.06 Absolute Neutrophils 16.04 H PT 14.9 H INR 1.1 APTT 40.4 H VBG Lactic Acid 1.1 POC Sodium Sodium POC Potassium Potassium POC Chloride Chloride Carbon Dioxide POC Total CO2 Anion Gap POC BUN BUN Creatinine POC Creatinine GFR Calculation Glucose POC Glucose Calcium POC WB Ioniz Calcium Total Bilirubin AST ALT Alkaline Phosphatase Troponin T NT-Pro-B Natriuret Pep Total Protein Albumin Globulin Albumin/Globulin Ratio Urine Color Urine Appearance Urine pH Ur Specific [place] Urine Protein Urine Glucose (UA) Urine Ketones Urine Occult Blood Urine Nitrate Urine Bilirubin Urine Urobilinogen Ur Leukocyte Esterase Ur Culture Indicated? A/P Narrative A/P Narrative: Assessment: 80 year old with a history of HFrEF s/p AICD, history of DVT (on low dose Xarelto), history of Crohn's disease (on mercaptopurine and balsalazide), chronic anemia admitted for possible severe sepsis with an acute kidney injury. Source of sepsis could be wound on right forearm from a recent puppy scratch. Sepsis workup chest xray, UA, LFT's, and physical exam otherwise has not yielded a source of infection so far. The patient has not had any recent medications changes. He is immunosuppressed from Mercaptopurine. #Possible severe sepsis #Immunosuppressed status from mercaptopurine #Acute kidney injury #HFrEF: stable #Chron's disease: stable, takes mercaptopurine and balsalazide #Anemia: slightly decreased hemoglobin #Hx DVT: on low dose Xarelto #Bilateral AICD: only right side AICD is functional Plan -Vancomycin and Ceftriaxone for now. -IV fluid, received bolus in ED. -Follow renal function, CBC, Mg -Hold home Irbesartan and bumetanide for MIRACLE -Hold mercaptopurine for probable infection -Follow pending blood cultures x2 -Continue home ASA, Coreg, Sertraline, Xarelto. -DVT ppx: xarelto -Code status: DNR -Disposition: home when stable Time Spent With Patient Time: Total time spent is greater than 50% in coordination of care (as documented) at patient's floor/unit and/or counseling patient:
[2020-08-26] MEDS ORDERED: ACETAMINOPHEN 325 MG TABLET PO PRN (00:09)
[2020-08-26] MEDS ORDERED: VANCOMYCIN PER PHARMACY IV ONE (00:09)
[2020-08-26] MEDS ORDERED: ONDANSETRON 4 MG/2 ML VIAL IV PRN (00:09)
[2020-08-26] MEDS ORDERED: 0.9 % SODIUM CHLORIDE 1,000 ML IV SCH (00:09)
[2020-08-26] MEDS ORDERED: cefTRIAXone 2 GM in DEXTROSE 5% IN WATER 50 ML IV SCH (00:09)
[2020-08-26] MEDS ORDERED: VANCOMYCIN 1,000 MG in 0.9 % SODIUM CHLORIDE 250 ML IV ONE (00:09)
[2020-08-26] MEDS ORDERED: cefTRIAXone 1 GM VIAL ONE (00:14)
[2020-08-26] MEDS: 0.9 % SODIUM CHLORIDE 10 ML SYRINGE IV SCH ×5 (00:24→20:07)
[2020-08-26] MEDS ORDERED: ACETAMINOPHEN 325 MG TABLET PO ONE (01:17)
[2020-08-26 06:51] LABS: Hematocrit 27.6 % (41.0-55.0); Hemoglobin 8.3 g/dL (13.5-16.5); Mean Cell Volume 89.9 fL (80.0-100.0); Mean Corpuscular HGB Conc 30.1 g/dL (31.0-36.0); Mean Platelet Volume 9.9 fL (7.4-10.4); Platelet Count 255 K/mcL (140-440); RBC 3.07 M/mcL (4.50-5.90); Red Cell Distribution Width 18.7 % (11.5-14.5); WBC 9.4 K/mcL (4.5-11.0)
[2020-08-26 07:11] LABS: ALT/SGPT 6 U/L (<40); AST/SGOT 11 U/L (<40); Albumin 2.9 gm/dL (3.2-5.2); Albumin/Globulin Ratio 0.9 (1.0-2.3); Alkaline Phosphatase 54 U/L (39-117); Bilirubin,Direct < 0.2 mg/dL (0-0.3); Bilirubin,Total 0.3 mg/dL (0.1-1.0); Blood Urea Nitrogen 23 mg/dL (8-23); Calcium 8.5 mg/dL (8.6-10.4); Carbon Dioxide 25 mmol/L (22-30); Chloride 103 mmol/L (96-108); Globulin 3.2 gm/dL (2.2-3.7); Glomerular Filtration Rate 71; Glucose 105 mg/dL (70-105); Lactate Dehydrogenase 164 U/L (135-225); Phosphorous 2.9 mg/dL (2.5-4.5); Triglycerides 79 mg/dL (<150); Uric Acid 3.6 mg/dL (2.5-8.0)
[2020-08-26 08:06] LABS: Anisocytosis 1+ (None Seen); Hypochromasia FEW (None Seen); Lymphocytes % 6 % (15-49); Monocytes % (Manual) 8 % (1-12); Platelet Estimate NORMAL (Normal); RBC Morphology ABNORMAL (Normal); Segmented Neutrophils % 86 % (38-78)
[2020-08-26] MEDS: CARVEDILOL 3.125 MG TABLET PO SCH ×2 (08:09→16:56)
[2020-08-26] MEDS: DOCUSATE SODIUM 100 MG CAPSULE PO SCH ×2 (08:10→19:56)
[2020-08-26] MEDS: MULTIVIT,THER IRON,CA,FA & MIN 1 TABLET PO SCH (08:10)
[2020-08-26] MEDS: RIVAROXABAN 20 MG TABLET PO SCH ×2 (08:21→16:55)
[2020-08-26] MEDS ORDERED: VANCOMYCIN PER PHARMACY IV SCH (08:30)
[2020-08-26] MEDS: ASPIRIN 81 MG TAB.CHEW PO SCH (08:44)
[2020-08-26] MEDS ORDERED: VANCOMYCIN 500 MG in 0.9 % SODIUM CHLORIDE 100 ML IV ONE (13:00)
--- NOTE | 2020-08-26 14:19 | Internal Med Progress Note ---
SUBJECTIVE Subjective Patient information: Note initiated : 08/26/20 at 2:15 pm Service Date, if different from initiated Date: [] Patient: Evgeny Garcia 80 y/o M admitted on 08/26/20 for fever and weakness. Chief Complaint: [fever] Interval history: Mr. Garcia is a 80 year old with a history of HFrEF, status post AICD, history of DVT, history of Crohn's disease (on mercaptopurine and balsalazide) presented to the ED for chills and fevers. In the ED the patient does not have a fever as well as cytosis. Work-up including chest x-raynegativ e, UAnegative, blood cultures pending. Lactic acid was normal. Physical exam is mostly unremarkable except wounds on the patient's upper extremities inflicted by a puppy. One of the wounds was weeping some fluid but not purulent and no cellulitis. The other wounds appear to be healing well. The patient also has an acute on chronic kidney disease injury. He was admitted for sepsis of unknown source. /10 Leukocytosis resolved, fever trend improved. Renal function back to baseline. Blood cultures pending. Head: Atraumatic, normal inspection. Eyes: normal appearance, no scleral icterus. Neck: full ROM Respiratory: no respiratory distress. Cardiovascular: normal rate and rhythm, systolic murmur present, bilateral AICD GI/Abdominal: soft, nontender, no guarding. Extremities: full range of motion, nontender. Neurological: CN II-XII intact, intact motor, intact sensation. Psychiatric: normal mood. Skin: healing wounds in both upper extremities Constitutional Vitals: Vital Signs Temp Pulse Resp BP Pulse Ox 98.4 F 65 18 120/65 99 08/26/20 11:27 08/26/20 11:27 08/26/20 11:27 08/26/20 11:27 08/26/20 11:27 Period Temp Pulse Resp BP Sys/[place] Pulse Ox Last 24 Hr 96.8 F-101.1 F 65-98 - 99-143/48-89 93-99 Intake and Output 08/26/20 08/26/20 08/26/20 05:59 13:59 21:59 Intake Total 450 1240 Output Total 100 Balance 350 1240 Weight 66.933 kg Intake & Output: Intake & Output 08/26/20 08/26/20 08/26/20 05:59 13:59 21:59 Intake Total 450 1240 Output Total 100 Balance 350 1240 Weight 66.933 kg Intake: IV 250 1000 Sodium Chloride 0.9% 1,000 ml @ 1000 100 mls/hr IV .Q10H [facility] Rx#: [id number] Vancomycin 1,000 mg In Sodium 250 Chloride 0.9% 250 ml @ 250 mls/ hr IV ONCE ONE Rx#:[id number] Oral 200 240 Output: Void Amount 100 Other: Meal Breakfast Percent of Meal Consumed 100% Feeding Ability Independent Urine Appearance Clear Urine Color Dark Yellow Urine Odor Normal # Voids 1 1 OBJ DATA Labs CBC & Chem 7: 08/26/20 05:39 08/26/20 05:39 Labs: Abnormal Lab Results 08/26/20 08/26/20 08/25/20 05:39 05:39 20:03 WBC 16.2 H RBC 3.07 L 3.34 L Hgb 8.3 L 9.0 L Hct 27.6 L 29.5 L POC Hct MCHC 30.1 L 30.5 L RDW 18.7 H 18.3 H MPV 10.7 H Neut % (Auto) 89.5 H Lymph % (Auto) 4.0 L Lymph # (Auto) 0.65 L [place] # (Auto) 0.96 H Seg Neutrophils % 86 H Lymphocytes % 6 L Absolute Neutrophils 14.44 H RBC Morphology Abnormal A Hypochromasia Few A Anisocytosis 1+ A PT APTT Anion Gap 6.0 L POC BUN BUN Creatinine Glucose POC Glucose Calcium 8.5 L Troponin T NT-Pro-B Natriuret Pep Albumin 2.9 L Globulin Albumin/Globulin Ratio 0.9 L 08/25/20 08/25/20 08/25/20 20:02 16:38 16:37 WBC RBC Hgb Hct POC Hct 30 L MCHC RDW MPV Neut % (Auto) Lymph % (Auto) Lymph # (Auto) [place] # (Auto) Seg Neutrophils % Lymphocytes % Absolute Neutrophils RBC Morphology Hypochromasia Anisocytosis PT APTT Anion Gap POC BUN 23 H BUN 30 H Creatinine 1.3 H Glucose 157 H POC Glucose 116 H Calcium Troponin T 0.03 H NT-Pro-B Natriuret Pep 6016.0 H Albumin Globulin 3.8 H Albumin/Globulin Ratio 0.9 L 08/25/20 08/25/20 16:37 16:37 WBC 17.4 H RBC 3.69 L Hgb 9.9 L Hct 32.8 L POC Hct MCHC 30.2 L RDW 18.3 H MPV 10.7 H Neut % (Auto) 92.3 H Lymph % (Auto) 1.3 L Lymph # (Auto) 0.22 L [place] # (Auto) 1.04 H Seg Neutrophils % Lymphocytes % Absolute Neutrophils 16.04 H RBC Morphology Hypochromasia Anisocytosis PT 14.9 H APTT 40.4 H Anion Gap POC BUN BUN Creatinine Glucose POC Glucose Calcium Troponin T NT-Pro-B Natriuret Pep Albumin Globulin Albumin/Globulin Ratio Meds: Medications Acetaminophen (Acetaminophen 325 Mg Tablet) 650 mg PO Q6HP PRN; Protocol PRN Reason: Per Pain Protocol/Fever > 101 Last Admin: 08/26/20 01:22 Dose: 650 mg Documented by: Aspirin (Aspirin 81 Mg Tab.Chew) 81 mg PO DAILY [facility] Last Admin: 08/26/20 08:44 Dose: Not Given Documented by: Carvedilol (Carvedilol 3.125 Mg Tablet) [facility] Last Admin: 08/26/20 08:09 Dose: 3.125 mg Documented by: Docusate Sodium (Docusate Sodium 100 Mg Capsule) 100 mg PO BID [facility] Last Admin: 08/26/20 08:10 Dose: 100 mg Documented by: Folic Acid (Folic Acid 1 Mg Tablet) 0.8 mg PO [id number] [facility] Ceftriaxone Sodium 2 gm/ (Dextrose) 50 mls @ 100 mls/hr IV Q24H [facility] Vancomycin HCl 1,000 mg/ (Sodium Chloride) 250 mls @ 250 mls/hr IV Q24H [facility] Iron Carb/Multivit/Generator Technician/Folic Acid (Multivit,Ther Iron,Ca,Fa & Min 1 Tablet) 1 tab PO DAILY [facility] Last Admin: 08/26/20 08:10 Dose: 1 tab Documented by: Ondansetron HCl (Ondansetron 4 Mg/2 Ml Vial) 4 mg IV Q6HP PRN PRN Reason: Nausea And Vomiting Balsalazide 750 Mg (Capsule) 3 dose PO TID [facility] Last Admin: 08/26/20 08:20 Dose: 3 dose Documented by: Rivaroxaban (Rivaroxaban 20 Mg Tablet) 10 mg PO DAILY [facility] Last Admin: 08/26/20 08:21 Dose: Not Given Documented by: Senna (Sennosides 1 Tablet) 2 tab PO HS [facility] Sodium Chloride (0.9 % Sodium Chloride 10 Ml Syringe) 10 ml IV Q8 [facility] Last Admin: 08/26/20 03:59 Dose: Not Given Documented by: Vancomycin HCl (Vancomycin Per Pharmacy) 1 order IV UD [facility]; Protocol A/P Narrative A/P Narrative: Assessment: 80 year old with a history of HFrEF s/p AICD, history of DVT (on low dose Xarelto), history of Crohn's disease (on mercaptopurine and balsalazide), chronic anemia admitted for possible severe sepsis with an acute kidney injury. Source of sepsis could be wound on right forearm from a recent puppy scratch. Sepsis workup chest xray, UA, LFT's, and physical exam otherwise has not yielded a source of infection so far. The patient has not had any recent medications changes. He is immunosuppressed from Mercaptopurine. #Severe sepsis: resolved sepsis physiology -possibly related to skin wound #Acute kidney injury: resolved #Immunosuppressed status from mercaptopurine #HFrEF: stable #Chron's disease: stable, takes mercaptopurine and balsalazide #Anemia: decreased hemoglobin likely dilutional #Hx DVT: on low dose Xarelto #Bilateral AICD: only right side AICD is functional Plan -Vancomycin and Ceftriaxone until afebrile for 48 hrs and pending blood culture. -Hold home Irbesartan and bumetanide for recent MIRACLE -Hold mercaptopurine for infectious presentation -Follow pending blood cultures x2 -Continue home ASA, Coreg, Sertraline, Xarelto. -DVT ppx: xarelto -Code status: DNR -Disposition: home when stable Time Spent With Patient Time: Total time spent is greater than 50% in coordination of care (as documented) at patient's floor/unit and/or counseling patient: QUALITY VTE Deep Vein Thrombosis/Pulmonary Embolism Present on Admission: No
[2020-08-26] MEDS: cefTRIAXone 2 GM in DEXTROSE 5% IN WATER 50 ML IV SCH (15:08)
[2020-08-26] MEDS ORDERED: SENNOSIDES 1 TABLET PO SCH (21:00)
[2020-08-27] MEDS: 0.9 % SODIUM CHLORIDE 10 ML SYRINGE IV SCH ×2 (04:09→13:58)
[2020-08-27 07:14] LABS: Hematocrit 29.3 % (41.0-55.0); Hemoglobin 8.9 g/dL (13.5-16.5); Mean Cell Volume 88.3 fL (80.0-100.0); Mean Corpuscular HGB Conc 30.4 g/dL (31.0-36.0); Mean Platelet Volume 10.3 fL (7.4-10.4); Platelet Count 284 K/mcL (140-440); RBC 3.32 M/mcL (4.50-5.90); Red Cell Distribution Width 18.5 % (11.5-14.5); WBC 6.5 K/mcL (4.5-11.0)
[2020-08-27 07:15] LABS: ALT/SGPT 5 U/L (<40); AST/SGOT 10 U/L (<40); Albumin 2.8 gm/dL (3.2-5.2); Albumin/Globulin Ratio 0.8 (1.0-2.3); Alkaline Phosphatase 55 U/L (39-117); Bilirubin,Direct < 0.2 mg/dL (0-0.3); Bilirubin,Total < 0.2 mg/dL (0.1-1.0); Blood Urea Nitrogen 14 mg/dL (8-23); Calcium 8.6 mg/dL (8.6-10.4); Carbon Dioxide 26 mmol/L (22-30); Chloride 107 mmol/L (96-108); Globulin 3.5 gm/dL (2.2-3.7); Glomerular Filtration Rate 84; Glucose 113 mg/dL (70-105); Lactate Dehydrogenase 138 U/L (135-225); Phosphorous 2.6 mg/dL (2.5-4.5); Triglycerides 106 mg/dL (<150); Uric Acid 3.4 mg/dL (2.5-8.0)
[2020-08-27 07:39] LABS: Anisocytosis 1+ (None Seen); Basophils % (Manual) 1 % (0-2); Eosinophils % (Manual) 4 % (0-7); Hypochromasia 2+ (None Seen); Lymphocytes % 16 % (15-49); Monocytes % (Manual) 11 % (1-12); Ovalocytes FEW (None Seen); Platelet Estimate NORMAL (Normal); Poikilocytosis FEW (None Seen); RBC Morphology ABNORMAL (Normal); Reactive Lymphocytes 1 % (0-2); Segmented Neutrophils % 67 % (38-78)
[2020-08-27] MEDS: CARVEDILOL 3.125 MG TABLET PO SCH ×2 (07:41→16:40)
[2020-08-27] MEDS: cefTRIAXone 2 GM in DEXTROSE 5% IN WATER 50 ML IV SCH (07:41)
[2020-08-27] MEDS: MULTIVIT,THER IRON,CA,FA & MIN 1 TABLET PO SCH (08:32)
[2020-08-27] MEDS: ASPIRIN 81 MG TAB.CHEW PO SCH (08:33)
[2020-08-27] MEDS: RIVAROXABAN 20 MG TABLET PO SCH (08:33)
[2020-08-27] MEDS: DOCUSATE SODIUM 100 MG CAPSULE PO SCH (08:38)
[2020-08-27] MEDS ORDERED: VANCOMYCIN 1,000 MG in 0.9 % SODIUM CHLORIDE 250 ML IV SCH (09:00)
--- NOTE | 2020-08-27 17:04 | Discharge Summary ---
Discharge Provider Provider Patient information: Note initiated : 08/27/20 at 5:00 pm Service Date, if different from initiated Date: [] Patient: Evgeny Garcia 80 y/o M admitted on 08/26/20 for fever and weakness. Chief Complaint: [] Date of admission: 08/26/20 00:09 Discharge date: 08/27/20 Primary care physician: Milton Bynum M.D., F.A.A.F.P. Consults: 08/25/20 Consult to Physician [CONS] Stat Comment: Consulting Provider: Curly Smith Reason For Exam: Physician to Consult Discharge Meds Discharge Medications Home Medications aspirin 81 mg PO DAILY 07/01/17 [History Confirmed 08/26/20 Last Taken 08/23/20] mercaptopurine 50 mg PO DAILY 07/01/17 [History Confirmed 08/26/20 Last Taken 08/26/20] cholecalciferol (vitamin D3) 125 mcg (5,000 unit) capsule 125 mcg PO QDAY 10/12/19 [History Confirmed 08/26/20 Last Taken 08/26/20] multivitamin 1 tab PO QAM 10/12/19 [History Confirmed 08/26/20 Last Taken 08/26/20] folic acid 1 mg tablet 800 mcg PO 3XW tab 11/23/19 [History Confirmed 08/26/20 Last Taken 08/26/20] mecobalamin (vitamin B12) 1,000 mcg chewable tablet 2,500 mcg PO 3XW tab 11/23/19 [History Confirmed 08/26/20 Last Taken 08/26/20] blood sugar diagnostic See Rx Instructions .ROUTE .COMPLEX #100 strip 03/20/20 [Rx Confirmed 08/26/20 Last Taken Unknown] rivaroxaban 10 mg tablet 10 mg PO QDAY #90 tab 03/23/20 [Rx Confirmed 08/26/20 Last Taken 08/26/20] irbesartan 75 mg tablet 75 mg PO QDAY #90 tab 05/29/20 [Rx Confirmed 08/26/20 Last Taken 08/26/20] balsalazide 750 mg capsule 2,250 mg PO TID #810 cap 07/11/20 [Rx Confirmed 08/26/20 Last Taken 08/26/20] potassium chloride 20 meq PO BID 08/02/20 [History Confirmed 08/26/20 Last Taken 08/26/20] bumetanide 1 mg tablet 1 mg PO BID #180 tab 08/18/20 [Rx Confirmed 08/26/20 Last Taken 08/26/20] carvedilol 3.125 mg PO BID 08/25/20 [History Confirmed 08/26/20 Last Taken 08/26/20] sertraline 25 mg PO QHS 08/26/20 [History Confirmed 08/26/20 Last Taken 08/25/20] levofloxacin 500 mg PO QDAY 5 Days #5 tab 08/27/20 [Rx Last Taken Unknown] COURSE Hospital Course Hospital course: Mr. Garcia is a 80 year old with a history of HFrEF, status post AICD, history of DVT, history of Crohn's disease (on mercaptopurine and balsalazide) presented to the ED for chills and fevers. In the ED the patient does not have a fever as well as cytosis. Work-up including chest x- raynegative, UAnegative, blood cultures pending. Lactic acid was normal. Physical exam is mostly unremarkable except wounds on the patient's upper extremities inflicted by a puppy. One of the wounds was weeping some fluid but not purulent and no cellulitis. The other wounds appear to be healing well. The patient also has an acute on chronic kidney disease injury. He was admitted for sepsis of unknown source. 08/26 Leukocytosis resolved, fever trend improved. Renal function back to baseline. Blood cultures pending. 08/27 Afebrile and feeling like he back to baseline. Blood culture showing no growth at day 2. Discharged to home. Levofloxacin 500 mg daily for five more days given immunosuppression. Patient will hold mercaptopurine until completing antbiotic course. Post hospital follow up; -follow up pending blood cultures to ensure no growth after 5 days. Discharge diagnosis: Sepsis of unclear source Secondary discharge diagnosis: Immunosuppression Chron's disease Time Spent with Patient Time attestation: Total time spent providing and/or coordinating discharge services: EXAM Constitutional Vitals: Temp Pulse Resp BP Pulse Ox 97.8 F 70 15 125/65 100 08/27/20 15:59 08/27/20 15:59 08/27/20 15:59 08/27/20 15:59 08/27/20 15:59 Additional findings Additional findings: Head: Atraumatic, normal inspection. Eyes: normal appearance, no scleral icterus. Neck: full ROM Respiratory: no respiratory distress. Cardiovascular: normal rate and rhythm, systolic murmur present, bilateral AICD GI/Abdominal: soft, nontender, no guarding. Extremities: full range of motion, nontender. Neurological: CN II-XII intact, intact motor, intact sensation. Psychiatric: normal mood. Skin: healing wounds in both upper extremities Discharge Data Data Completed and Pending Labs on day of discharge: Labs from last 24 hours 08/27/20 08/27/20 05:14 05:14 WBC 6.5 RBC 3.32 L Hgb 8.9 L Hct 29.3 L MCV 88.3 MCH 26.8 MCHC 30.4 L RDW 18.5 H Plt Count 284 MPV 10.3 Seg Neutrophils % 67 Lymphocytes % 16 Monocytes % (Manual) 11 Eosinophils % (Manual) 4 Basophils % (Manual) 1 Reactive Lymphocytes 1 Platelet Estimate Normal RBC Morphology Abnormal A Hypochromasia 2+ A Poikilocytosis Few A Anisocytosis 1+ A Ovalocytes Few A Sodium 139 Potassium 4.0 Chloride 107 Carbon Dioxide 26 Anion Gap 6.0 L BUN 14 Creatinine 0.8 GFR Calculation 84 Glucose 113 H Uric Acid 3.4 Calcium 8.6 Phosphorus 2.6 Magnesium 2.0 Total Bilirubin < 0.2 Direct Bilirubin < 0.2 GGT 22 AST 10 ALT 5 Alkaline Phosphatase 55 Lactate Dehydrogenase 138 Total Protein 6.3 Albumin 2.8 L Globulin 3.5 Albumin/Globulin Ratio 0.8 L Triglycerides 106 Preliminary micro results at discharge 08/25/20 16:55 Blood Culture - Preliminary Blood 08/25/20 16:39 Blood Culture - Preliminary Blood Discharge Plan Patient/Caregiver Discharge Instructions Activity: increase activity as tolerated Instructions: Dehydration (ED), Weakness (ED) Prescriptions: New levofloxacin 500 mg tablet 500 mg PO QDAY 5 Days Qty: 5 RF: 0 Continued blood sugar diagnostic [Contour Test Strips] Strip See Rx Instructions .ROUTE .COMPLEX Qty: 100 RF: 3 Xarelto 10 mg tablet 10 mg PO QDAY Qty: 90 RF: 4 irbesartan 75 mg tablet 75 mg PO QDAY Qty: 90 RF: 4 balsalazide 750 mg capsule 2,250 mg PO TID Qty: 810 RF: 0 bumetanide 1 mg tablet 1 mg PO BID Qty: 180 RF: 4 multivitamin [Multiple Vitamins] Tablet 1 tab PO QAM RF: 0 cholecalciferol (vitamin D3) 125 mcg (5,000 unit) capsule 125 mcg PO QDAY RF: 0 folic acid 1 mg tablet 800 mcg PO 3XW RF: 0 mecobalamin (vitamin B12) 1,000 mcg tablet,chewable 2,500 mcg PO 3XW RF: 0 mercaptopurine 50 MG tablet 50 mg PO DAILY RF: 0 aspirin 81 MG tablet,chewable 81 mg PO DAILY RF: 0 potassium chloride 10 mEq tablet extended release 20 meq PO BID RF: 0 carvedilol 3.125 mg tablet 3.125 mg PO BID RF: 0 sertraline 25 mg tablet 25 mg PO QHS RF: 0 Follow Up Plan Follow up with: Milton Bynum MD, FAAFP [Primary Care Provider] - Patient Disposition: Home, Self-Care Prognosis: Fair Rehab Potential: Fair Overall status at discharge: patient is back to baseline Discharge Orders: Discharge Order (Routine); Ordered 08/27/20 Ordered By: Curly RALPH VTE Deep Vein Thrombosis/Pulmonary Embolism Present on Admission: No
[2020-08-28] MEDS ORDERED: FOLIC ACID 1 MG TABLET PO SCH (09:00)
== END 2020-08-27 17:50 | disposition home or self-care (01) | DRG 872 ==
LOC: ED 16:17 → MEDSUR 08-26 00:09
PROVIDERS: ADMIT Internal Medicine; ATTEND Internal Medicine

== ENCOUNTER 2020-10-07 17:17 | Observation (INO) ==
--- NOTE | 2020-10-07 17:50 | Emergency Department Note ---
GI Bleed HPI General Chief complaint: Rectal Bleed Stated complaint: rectal bleeding Time Seen by Provider: 10/07/20 17:29 Source: patient Mode of arrival: ambulatory History of Present Illness HPI Narrative: Narrative: Presents to room 2 for evaluation of right red blood per rectum. The patient is well-known to myself. I saw the patient in July of this year at which time he was admitted for similar symptoms. At that time he had endoscopy which showed a polypoid mass in the stomach. He was also identified to have ischemic colitis. He was treated symptomatically and subsequently discharged home. The patient has a history of CHF with a EF of 41%. He also has an AICD and has a previous left subclavian vein DVT. He takes Xarelto and aspirin for this. Patient also has a history of Crohn's disease. The patient was admitted in August for generalized weakness and leukocytosis but no actual source of infection was identified. The patient was seen again in the emergency department 3 days ago for generalized sense of weakness. The patient's evaluation at that time was essentially benign and the patient was discharged home. The patient returns today after again feeling a sense of generalized weakness to the point where he is having difficulty ambulating unassisted. The patient also reports he had a bowel movement. After replacing his diaper he was noted to have some bright red blood in the diaper. The patient had a second bowel movement with a significant amount of bright red blood in the toilet bowl. He denies any documented fever or shaking chills. No chest pain. No cough or sputum production. He denies abdominal pain or flank pain. No dysuria or hematuria. Denies headache. No focal motor weakness or sensory numbness. Related Data Home Medications Medication Instructions Recorded Confirmed aspirin 81 mg PO DAILY 07/01/17 08/30/20 mercaptopurine 50 mg PO DAILY 07/01/17 08/30/20 cholecalciferol (vitamin D3) 125 125 mcg PO QDAY 10/12/19 08/30/20 mcg (5,000 unit) capsule multivitamin 1 tab PO QAM 10/12/19 08/30/20 mecobalamin (vitamin B12) 1,000 2,500 mcg PO 3XW tab 11/23/19 08/30/20 mcg chewable tablet potassium chloride 20 meq PO BID 08/02/20 08/30/20 carvedilol 3.125 mg PO BID 08/25/20 08/30/20 sertraline 25 mg PO QHS 08/26/20 08/30/20 Previous Rx's Medication Instructions Recorded rivaroxaban 10 mg tablet 10 mg PO QDAY #90 tab 03/23/20 irbesartan 75 mg tablet 75 mg PO QDAY #90 tab 05/29/20 balsalazide 750 mg capsule 2,250 mg PO TID #810 cap 07/11/20 bumetanide 1 mg tablet 1 mg PO BID #180 tab 08/18/20 ferrous sulfate 325 mg (65 mg 325 mg PO QDAY #30 tab 09/12/20 iron) tablet Allergies Allergy/AdvReac Type Severity Reaction Status Date / Time No Known Intolerances Allergy Unknown Other Verified 08/30/20 13:04 Review of Systems ROS ROS Narrative: Narrative: All systems ED: reviewed and negative except as stated. [facility] Narrative Patient History Narrative: Narrative: Medical/Surgical/Family History All Active Problems (Updated 10/07/20 @ 22:43 by Daniel Moon MD) Weakness generalized (Acute) Ambulatory dysfunction (Acute) Acute dehydration (Acute) Elevated WBC count (Acute) Acute GI bleeding (Acute) Dehydration (Acute) Weakness (Acute) GI bleed (Acute) Rectal bleeding (Acute) Diabetes mellitus with hyperglycemia (Acute) Low back pain (Acute) Basal cell carcinoma (BCC) of skin of nose (Chronic ~10/27/17) Hemorrhoids (Chronic) Hay fever (Chronic) Pneumonia (Chronic) Measles (Chronic) Acute systolic CHF (congestive heart failure), NYHA class 1 (Chronic) Major depressive disorder, single episode, mild (Chronic) Chronic systolic (congestive) heart failure (Chronic) Pulmonary arterial hypertension (Chronic) Mitral insufficiency (Chronic) Sick sinus syndrome (Chronic) 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) Personal history of diseases of the skin and subcutaneous tissue (Chronic) Other hemoglobinopathies (Chronic) Chronic fatigue (Chronic) Benign prostatic hyperplasia without lower urinary tract symptoms (Chronic) 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) Left sided colitis without complications (Chronic) CKD (chronic kidney disease), stage II (Chronic) Right bundle branch block (Chronic) Dry eye syndrome of both eyes (Chronic) Unspecified ptosis of bilateral eyelids (Chronic) Contraction, 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) Conductive hearing loss, bilateral (Chronic) 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) Other ulcerative colitis without complications (Chronic) Anxiety (Chronic) Hernia (Chronic) Cataract (Chronic) Kidney stones (Chronic ~07/2019) High cholesterol (Chronic ~1989) High blood pressure (Chronic ~1994) History of blood clots (Chronic ~07/2018) Crohn's disease (Chronic) Skin cancer (Chronic) Diabetes mellitus, type II (Chronic) Left upper extremity swelling (Chronic) Subclavian vein thrombosis, left (Chronic) Pacemaker (Chronic ~07/2017) Prediabetes (Chronic) Inflammatory bowel disease (Chronic) Bradycardia (Chronic) Medical History Acute systolic CHF (congestive heart failure), NYHA class 1 Anxiety Basal cell carcinoma (BCC) of skin of nose (~10/27/17) Benign prostatic hyperplasia without lower urinary tract symptoms Bradycardia Cataract 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 Chronic fatigue Chronic systolic (congestive) heart failure CKD (chronic kidney disease), stage II Conductive hearing loss, bilateral Contraction, premature ventricular Crohn's disease Diabetes mellitus with hyperglycemia Diabetes mellitus, type II Dry eye syndrome of both eyes ED (erectile dysfunction) of non-organic origin GI bleed Hay fever Hemorrhoids Hernia High blood pressure (~1994) High cholesterol (~1989) History of blood clots (~07/2018) Inflammatory bowel disease Kidney stones (~07/2019) Left sided colitis without complications Left upper extremity swelling Low back pain Major depressive disorder, single episode, mild Measles Mitral insufficiency Other hemoglobinopathies Other ulcerative colitis without complications Pacemaker (~07/2017) Personal history of diseases of the skin and subcutaneous tissue H/O sebaceous epithelioma, 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 Unspecified ptosis of bilateral eyelids Vertebro-basilar artery syndrome Surgical History History of cataract extraction (~2014) History of colonoscopy (~12/2008) History of eye surgery (~2016) History of hernia repair 1994; 2003 History of pacemaker (~08/13/17) 2017; 2019 History of strabismus surgery (~2017) Status post surgical removal of malignant neoplasm of skin (~2018) Right Cheek Family History Sister Ovarian cancer Father High blood pressure Heart attack Social History Smoking Status: Never smoker Alcohol Intake Frequency: a few times a month Substance Use: does not use Exam Narrative Narrative: Narrative: General General appearance: Present alert and in no apparent distress Head Head: Present atraumatic, normocephalic and normal inspection Eye Eye: Present normal appearance and EOMI; Absent conjunctival injection ENT ENT: Present normal exam and mucous membranes moist Neck Neck: Present normal inspection and trachea midline Respiratory Respiratory: Present normal lung sounds bilaterally; Absent respiratory distress Cardiovascular Cardiovascular: Present regular rate, normal rhythm and normal heart sounds Adbominal Abdominal: Present soft; Absent distention, tenderness, guarding and rebound Extremities Extremities: Present normal inspection; Absent tenderness Back Back: Present normal inspection; Absent tenderness Neurological Neurological: Present alert, oriented X3 and CN II-XII intact; Absent motor sensory deficit Psychiatric Psychiatric: Present normal affect and normal mood Skin Skin: Present warm (WNL) and dry; Absent rash Course Vital Signs Vital signs: Vital Signs Temperature 99 F 10/07/20 17:19 Pulse Rate 86 10/07/20 17:19 Respiratory Rate 16 10/07/20 17:19 Blood Pressure 113/56 10/07/20 17:19 Pulse Oximetry (%) 96 10/07/20 17:19 Temperature 99 F 10/07/20 17:19 Pulse Rate 73 10/07/20 22:01 Respiratory Rate 14 10/07/20 22:01 Blood Pressure 118/60 10/07/20 22:01 Pulse Oximetry (%) 96 10/07/20 22:01 [facility] MDM Narrative Medical decision making narrative: Narrative: The patient presents for evaluation of rectal bleeding as well as generalized weakness and inability to ambulate. The patient's labs do show a mild decreased in his H&H. His BUN is actually slightly improved from his more recent visit. The patient has had no further episodes of rectal bleeding in the emergency department. His vital signs have been stable. The patient does have recent colonoscopy and endoscopy and I do not believe that he requires urgent endoscopy at this time. I am more concerned regarding the patient's apparent worsening lower extremity weakness and inability to ambulate. I do believe the patient will benefit from admission and further evaluation of this including imaging of his spine. I have discussed the case with Dr. Smith. He has agreed to admit the patient. Lab Data Lab results reviewed: Yes I reviewed the patient's lab results. Result diagrams: 10/07/20 17:58 10/07/20 17:58 Labs: Lab Results 10/07/20 10/07/20 10/07/20 Range/Units 17:58 17:58 17:58 WBC 9.2 (4.5-11.0) K/mcL RBC 3.04 L (4.50-5.90) M/mcL Hgb 8.6 L (13.5-16.5) g/dL Hct 27.4 L (41.0-55.0) % MCV 90.1 (80.0-100.0) fL MCH 28.3 (26.0-34.0) pg MCHC 31.4 (31.0-36.0) g/dL RDW 18.5 H (11.5-14.5) % Plt Count 255 (140-440) K/mcL MPV 10.8 H (7.4-10.4) fL Neut % (Auto) 87.5 H (38.0-78.0) % Lymph % (Auto) 4.1 L (15.0-49.0) % [place] % (Auto) 7.6 (1.0-12.0) % Eos % (Auto) 0.3 (0.0-7.0) % Baso % (Auto) 0.5 (0.0-2.0) % Lymph # (Auto) 0.38 L (1.50-4.80) K/mcL R[place] # (Auto) 0.70 (0.10-0.90) K/mcL Eos # (Auto) 0.03 (0.00-0.70) K/mcL Baso # (Auto) 0.05 (0.00-0.20) K/mcL Absolute Neutrophils 8.06 H (1.80-8.00) K/mcL POC PT 12.5 (11.9-14.5) sec POC INR 1.0 (0.8-1.2) APTT 38.7 H (20.0-37.0) sec VBG Lactic Acid (0.5-2.0) mmol/L Sodium 133 (133-145) mmol/L Potassium 4.6 (3.3-5.1) mmol/L Chloride 101 (96-108) mmol/L Carbon Dioxide 25 (22-30) mmol/L Anion Gap 7.0 L (8.0-16.0) BUN 25 H (8-23) mg/dL Creatinine 1.1 (0.7-1.2) mg/dL GFR Calculation 63 Glucose 114 H (70-105) mg/dL Calcium 8.7 (8.6-10.4) mg/dL Total Bilirubin 0.2 (0.1-1.0) mg/dL AST 15 (<40) U/L ALT 10 (<40) U/L Alkaline Phosphatase 75 (39-117) U/L Troponin T (<0.03) ng/mL Total Protein 6.6 (5.9-8.4) gm/dL Albumin 3.3 (3.2-5.2) gm/dL Globulin 3.3 (2.2-3.7) gm/dL Albumin/Globulin Ratio 1.0 (1.0-2.3) Urine Color Urine Appearance (Clear) Urine pH (5.0-9.0) Ur Specific Cantil (1.000-1.035) Urine Protein (Negative) mg/dL Urine Glucose (UA) (Negative) mg/dL Urine Ketones (Negative) mg/dL Urine Occult Blood (Negative) mg/dL Urine Nitrate (Negative) Urine Bilirubin (Negative) mg/dL Urine Urobilinogen mg/dL Ur Leukocyte Esterase (Negative) /ug Urine RBC (0-3) /hpf Urine WBC (0-4) /hpf Ur Squamous Epith Cells (0-4) /hpf Urine Bacteria (0) /hpf Hyaline Casts (0-2) /lph Urine Mucus (None) /hpf Ur Culture Indicated? 10/07/20 10/07/20 10/07/20 Range/Units 17:58 17:58 18:40 WBC (4.5-11.0) K/mcL RBC (4.50-5.90) M/mcL Hgb (13.5-16.5) g/dL Hct (41.0-55.0) % MCV (80.0-100.0) fL MCH (26.0-34.0) pg MCHC (31.0-36.0) g/dL RDW (11.5-14.5) % Plt Count (140-440) K/mcL MPV (7.4-10.4) fL Neut % (Auto) (38.0-78.0) % Lymph % (Auto) (15.0-49.0) % Rusk % (Auto) (1.0-12.0) % Eos % (Auto) (0.0-7.0) % Baso % (Auto) (0.0-2.0) % Lymph # (Auto) (1.50-4.80) K/mcL Rusk # (Auto) (0.10-0.90) K/mcL Eos # (Auto) (0.00-0.70) K/mcL Baso # (Auto) (0.00-0.20) K/mcL Absolute Neutrophils (1.80-8.00) K/mcL POC PT (11.9-14.5) sec POC INR (0.8-1.2) APTT (20.0-37.0) sec VBG Lactic Acid 1.1 (0.5-2.0) mmol/L Sodium (133-145) mmol/L Potassium (3.3-5.1) mmol/L Chloride (96-108) mmol/L Carbon Dioxide (22-30) mmol/L Anion Gap (8.0-16.0) BUN (8-23) mg/dL Creatinine (0.7-1.2) mg/dL GFR Calculation Glucose (70-105) mg/dL Calcium (8.6-10.4) mg/dL Total Bilirubin (0.1-1.0) mg/dL AST (<40) U/L ALT (<40) U/L Alkaline Phosphatase (39-117) U/L Troponin T 0.02 (<0.03) ng/mL Total Protein (5.9-8.4) gm/dL Albumin (3.2-5.2) gm/dL Globulin (2.2-3.7) gm/dL Albumin/Globulin Ratio (1.0-2.3) Urine Color Yellow Urine Appearance Hazy A (Clear) Urine pH 7.0 (5.0-9.0) Ur Specific [place]il 1.023 (1.000-1.035) Urine Protein 30 A (Negative) mg/dL Urine Glucose (UA) Negative (Negative) mg/dL Urine Ketones Negative (Negative) mg/dL Urine Occult Blood Negative (Negative) mg/dL Urine Nitrate Negative (Negative) Urine Bilirubin Negative (Negative) mg/dL Urine Urobilinogen Negative mg/dL Ur Leukocyte Esterase Negative (Negative) /ug Urine RBC 3 (0-3) /hpf Urine WBC 9 H (0-4) /hpf Ur Squamous Epith Cells 0 (0-4) /hpf Urine Bacteria None (0) /hpf Hyaline Casts 5 H (0-2) /lph Urine Mucus Few A (None) /hpf Ur Culture Indicated? No ED POC Tests ED POC Tests: DARREL - SARS Antigen Negative Radiology Data Radiology results reviewed: Yes I reviewed the patient's radiology results. Radiology results narrative: Rate 81, atrial sensed ventricular paced rhythm, no further analysis EKG Data EKG #1: EKG attestation: Yes I reviewed and interpreted this EKG., Yes There are no EKG findings of acute coronary syndrome and Yes This EKG will be read by bread jockey Rhythm Strip Data Rhythm Strip Rate: 85 Interpretation: Paced rhythm Pulse Oximetry Data Pulse Ox %: 97 Interpretation: room air, normal Discharge Plan Patient/Caregiver Discharge Instructions Pt seen by ENTERTAINMENT USHER/PA only: No Clinical Impression: Weakness, Acute GI bleeding Patient Disposition: Xfer As Outpt/Obs ([facility]) Discharge Date/Time: 10/07/20 22:24 Discharge Location: [facility]
[2020-10-07 18:04] LABS: POC Pro Time 12.5 sec (11.9-14.5)
[2020-10-07 18:36] LABS: Basophils # (Auto) 0.05 K/mcL (0.00-0.20); Basophils % (Auto) 0.5 % (0.0-2.0); Eosinophils # (Auto) 0.03 K/mcL (0.00-0.70); Eosinophils % (Auto) 0.3 % (0.0-7.0); Hematocrit 27.4 % (41.0-55.0); Hemoglobin 8.6 g/dL (13.5-16.5); Lymphocytes # (Auto) 0.38 K/mcL (1.50-4.80); Lymphocytes % (Auto) 4.1 % (15.0-49.0); Mean Cell Volume 90.1 fL (80.0-100.0); Mean Corpuscular HGB Conc 31.4 g/dL (31.0-36.0); Mean Platelet Volume 10.8 fL (7.4-10.4); Monocytes % (Auto) 7.6 % (1.0-12.0); Neutrophils % (Auto) 87.5 % (38.0-78.0); Platelet Count 255 K/mcL (140-440); RBC 3.04 M/mcL (4.50-5.90); Red Cell Distribution Width 18.5 % (11.5-14.5); WBC 9.2 K/mcL (4.5-11.0)
--- NOTE | 2020-10-07 18:41 | XRay Report ---
CLINICAL INFORMATION: weakness, GI bleed COMPARISON: 10/04/2020. FINDINGS: Pacemaker leads in stable satisfactory position. The heart is borderline enlarged, but stable. Mediastinum and pulmonary vessels are normal. Lungs are clear. No effusions. IMPRESSION: No acute disease. Stable. Interpreted and Authenticated by: Mark Wright 10/07/20
[2020-10-07 18:47] LABS: Partial Thromboplastin Time 38.7 sec (20.0-37.0)
[2020-10-07 18:57] LABS: ALT/SGPT 10 U/L (<40); AST/SGOT 15 U/L (<40); Albumin 3.3 gm/dL (3.2-5.2); Alkaline Phosphatase 75 U/L (39-117); Bilirubin,Total 0.2 mg/dL (0.1-1.0); Blood Urea Nitrogen 25 mg/dL (8-23); Calcium 8.7 mg/dL (8.6-10.4); Carbon Dioxide 25 mmol/L (22-30); Chloride 101 mmol/L (96-108); Globulin 3.3 gm/dL (2.2-3.7); Glomerular Filtration Rate 63; Glucose 114 mg/dL (70-105)
[2020-10-07 19:25] LABS: Appearance,Urine HAZY (Clear); Bilirubin,Urine Negative (Negative); Color,Urine YELLOW; Culture Indicated,Urine No; Glucose,Urine (UA) Negative (Negative); Ketones,Urine Negative (Negative); Leukocyte Esterase,Urine Negative /ug (Negative); Mucus,Urine FEW /hpf; Nitrate,Urine Negative (Negative); Protein,Urine 30 mg/dL (Negative); Specific Gravity,Urine 1.023 (1.000-1.035); Urine Blood Negative (Negative); Urine Hyaline Cast 5 /lph (0-2); Urine RBC 3 /hpf (0-3); Urine Squamous Epithelial Cell 0 /hpf (0-4); Urine WBC 9 /hpf (0-4); Urobilinogen,Urine Negative
--- NOTE | 2020-10-07 21:44 | Internal Med History&Physical ---
HPI History of Present Illness Patient information: Note initiated : 10/07/20 at 9:43 pm Service Date, if different from initiated Date: [] Patient: Evgeny Garcia 80 y/o M admitted on for rectal bleeding. Chief Complaint: [] History of present illness: Mr. Garcia is a 80 year old male with a history of GI bleeds, inflammatory bowel disease (probably Crohn's disease), DVT (on Xarelto), hypertension presents with bright red blood per rectum and generalized weakness. His hemoglobin declined from 10.1 to 8.6. His hemoglobin is typically in the 9-10 range. The patient takes Xarelto for a history of DVT and also aspirin. He recently had a colonoscopy for a GI bleed that showed evidence of right colon ischemic colitis, diverticulosis, hemorrhoids, and inflammatory bowel disease consistent with Crohn's disease. The patient had a EGD on 08/03/20 that showed a large polyp in the greater curvature of the stomach. The patient has an appointment with GI at [facility] in [place], [place] for a polypectomy. Constitutional: no fever, fatigue, or weight loss Eyes: no vision changes or pain Cardiovascular: no chest pain, no palpitations Respiratory: no cough or dyspnea Gastrointestinal: positive for bright red blood per rectum, no abdominal pain, n o nausea, vomiting, or diarrhea Genitourinary: no dysuria or difficulty voiding Musculoskeletal: positive for generalized weakness, no arthralgia or myalgia Integumentary: no skin lesion or wound Neurological: no focal weakness or numbness Psychiatric: no anxiety or depression Head: Atraumatic, normal inspection. Eyes: normal appearance, no scleral icterus. Neck: full ROM Respiratory: no respiratory distress. Cardiovascular: normal rate and rhythm, S1, S2. GI/Abdominal: soft, nontender, no guarding. Extremities: full range of motion, nontender. Neurological: CN II-XII intact, intact motor, intact sensation. Psychiatric: normal mood. Skin: warm, normal color PFSH PFSH All Active Problems (Updated 10/07/20 @ 22:43 by Daniel Moon MD) Weakness generalized (Acute) Ambulatory dysfunction (Acute) Acute dehydration (Acute) Elevated WBC count (Acute) Acute GI bleeding (Acute) Dehydration (Acute) Weakness (Acute) GI bleed (Acute) Rectal bleeding (Acute) Diabetes mellitus with hyperglycemia (Acute) Low back pain (Acute) Basal cell carcinoma (BCC) of skin of nose (Chronic ~10/27/17) Hemorrhoids (Chronic) Hay fever (Chronic) Pneumonia (Chronic) Measles (Chronic) Acute systolic CHF (congestive heart failure), NYHA class 1 (Chronic) Major depressive disorder, single episode, mild (Chronic) Chronic systolic (congestive) heart failure (Chronic) Pulmonary arterial hypertension (Chronic) Mitral insufficiency (Chronic) Sick sinus syndrome (Chronic) 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) Personal history of diseases of the skin and subcutaneous tissue (Chronic) Other hemoglobinopathies (Chronic) Chronic fatigue (Chronic) Benign prostatic hyperplasia without lower urinary tract symptoms (Chronic) 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) Left sided colitis without complications (Chronic) CKD (chronic kidney disease), stage II (Chronic) Right bundle branch block (Chronic) Dry eye syndrome of both eyes (Chronic) Unspecified ptosis of bilateral eyelids (Chronic) Contraction, 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) Conductive hearing loss, bilateral (Chronic) 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) Other ulcerative colitis without complications (Chronic) Anxiety (Chronic) Hernia (Chronic) Cataract (Chronic) Kidney stones (Chronic ~07/2019) High cholesterol (Chronic ~1989) High blood pressure (Chronic ~1994) History of blood clots (Chronic ~07/2018) Crohn's disease (Chronic) Skin cancer (Chronic) Diabetes mellitus, type II (Chronic) Left upper extremity swelling (Chronic) Subclavian vein thrombosis, left (Chronic) Pacemaker (Chronic ~07/2017) Prediabetes (Chronic) Inflammatory bowel disease (Chronic) Bradycardia (Chronic) Medical History Acute systolic CHF (congestive heart failure), NYHA class 1 Anxiety Basal cell carcinoma (BCC) of skin of nose (~10/27/17) Benign prostatic hyperplasia without lower urinary tract symptoms Bradycardia Cataract 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 Chronic fatigue Chronic systolic (congestive) heart failure CKD (chronic kidney disease), stage II Conductive hearing loss, bilateral Contraction, premature ventricular Crohn's disease Diabetes mellitus with hyperglycemia Diabetes mellitus, type II Dry eye syndrome of both eyes ED (erectile dysfunction) of non-organic origin GI bleed Hay fever Hemorrhoids Hernia High blood pressure (~1994) High cholesterol (~1989) History of blood clots (~07/2018) Inflammatory bowel disease Kidney stones (~07/2019) Left sided colitis without complications Left upper extremity swelling Low back pain Major depressive disorder, single episode, mild Measles Mitral insufficiency Other hemoglobinopathies Other ulcerative colitis without complications Pacemaker (~07/2017) Personal history of diseases of the skin and subcutaneous tissue H/O sebaceous epithelioma, 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 Unspecified ptosis of bilateral eyelids Vertebro-basilar artery syndrome Surgical History History of cataract extraction (~2014) History of colonoscopy (~12/2008) History of eye surgery (~2016) History of hernia repair 1994; 2002 History of pacemaker (~08/13/17) 2017; 2019 History of strabismus surgery (~2016) Status post surgical removal of malignant neoplasm of skin (~2018) Right Cheek Family History Sister Ovarian cancer Father High blood pressure Heart attack Social History marital status: occupational status: retired alcohol intake frequency: a few times a month substance use type: does not use MEDS/ALLERGIES Home Medications and Allergies Home Medications Medication Instructions Recorded Confirmed Type aspirin 81 mg PO DAILY 07/01/17 10/07/20 History mercaptopurine 50 mg PO DAILY 07/01/17 10/07/20 History cholecalciferol (vitamin D3) 125 125 mcg PO QDAY 10/12/19 10/07/20 History mcg (5,000 unit) capsule multivitamin 1 tab PO QAM 10/12/19 10/07/20 History mecobalamin (vitamin B12) 1,000 2,500 mcg PO 3XW tab 11/23/19 10/07/20 History mcg chewable tablet rivaroxaban 10 mg tablet 10 mg PO QDAY #90 tab 03/23/20 10/07/20 Rx irbesartan 75 mg tablet 75 mg PO QDAY #90 tab 05/29/20 10/07/20 Rx balsalazide 750 mg capsule 2,250 mg PO TID #810 cap 07/11/20 10/07/20 Rx potassium chloride 20 meq PO DAILY 08/02/20 10/07/20 History carvedilol 3.125 mg PO BID 08/25/20 10/07/20 History sertraline 25 mg PO QHS 08/26/20 10/07/20 History ferrous sulfate 325 mg (65 mg 325 mg PO QDAY #30 tab 09/12/20 10/07/20 Rx iron) tablet bumetanide 1 mg PO QDAY 10/07/20 10/07/20 History Allergies Allergy/AdvReac Type Severity Reaction Status Date / Time No Known Drug Allergies Allergy Unverified 10/07/20 23:24 EXAM Constitutional Vitals: Temp Pulse Resp BP Pulse Ox 99 F 76 17 131/68 96 10/07/20 17:19 10/07/20 21:31 10/07/20 21:31 10/07/20 21:31 10/07/20 21:31 DATA Data Completed and Pending Labs: Labs from last 24 hours 10/07/20 10/07/20 10/07/20 18:40 17:58 17:58 WBC RBC Hgb Hct MCV MCH MCHC RDW Plt Count MPV Neut % (Auto) Lymph % (Auto) [place] % (Auto) Eos % (Auto) Baso % (Auto) Lymph # (Auto) [place] # (Auto) Eos # (Auto) Baso # (Auto) Absolute Neutrophils POC PT POC INR APTT VBG Lactic Acid 1.1 Sodium Potassium Chloride Carbon Dioxide Anion Gap BUN Creatinine GFR Calculation Glucose Calcium Total Bilirubin AST ALT Alkaline Phosphatase Troponin T 0.02 Total Protein Albumin Globulin Albumin/Globulin Ratio Urine Color Yellow Urine Appearance Hazy A Urine pH 7.0 Ur Specific [place] 1.023 Urine Protein 30 A Urine Glucose (UA) Negative Urine Ketones Negative Urine Occult Blood Negative Urine Nitrate Negative Urine Bilirubin Negative Urine Urobilinogen Negative Ur Leukocyte Esterase Negative Urine RBC 3 Urine WBC 9 H Ur Squamous Epith Cells 0 Urine Bacteria None Hyaline Casts 5 H Urine Mucus Few A Ur Culture Indicated? No 10/07/20 10/07/20 10/07/20 17:58 17:58 17:58 WBC 9.2 RBC 3.04 L Hgb 8.6 L Hct 27.4 L MCV 90.1 MCH 28.3 MCHC 31.4 RDW 18.5 H Plt Count 255 MPV 10.8 H Neut % (Auto) 87.5 H Lymph % (Auto) 4.1 L [place] % (Auto) 7.6 Eos % (Auto) 0.3 Baso % (Auto) 0.5 Lymph # (Auto) 0.38 L [place] # (Auto) 0.70 Eos # (Auto) 0.03 Baso # (Auto) 0.05 Absolute Neutrophils 8.06 H POC PT 12.5 POC INR 1.0 APTT 38.7 H VBG Lactic Acid Sodium 133 Potassium 4.6 Chloride 101 Carbon Dioxide 25 Anion Gap 7.0 L BUN 25 H Creatinine 1.1 GFR Calculation 63 Glucose 114 H Calcium 8.7 Total Bilirubin 0.2 AST 15 ALT 10 Alkaline Phosphatase 75 Troponin T Total Protein 6.6 Albumin 3.3 Globulin 3.3 Albumin/Globulin Ratio 1.0 Urine Color Urine Appearance Urine pH Ur Specific [place] Urine Protein Urine Glucose (UA) Urine Ketones Urine Occult Blood Urine Nitrate Urine Bilirubin Urine Urobilinogen Ur Leukocyte Esterase Urine RBC Urine WBC Ur Squamous Epith Cells Urine Bacteria Hyaline Casts Urine Mucus Ur Culture Indicated? A/P Narrative A/P Narrative: Assessment: Mr. Garcia is a 80 year old male with a history of GI bleeds, inflammatory bowel disease (probably Crohn's disease), DVT (on Xarelto), hypertension presents with bright red blood per rectum and generalized weakness. #Hematochezia-probably resolved, suspect diverticular vs hemorrhoid bleed -hx of recurrent GI bleed, last bleed was felt to be due to ischemic colitis -hx of diverticulosis, hemorrhoids -was on Xarelto and Aspirin #Generalized weakness-slowly progressive #Large gastric polyp-plans for polypectomy in early October #Hx of DVT-was on Xarelto #Inflammatory bowel syndrome-on DMARD (mercaptopurine and balsalazide) #Hx of HFrEF-LV EF improved from 30% to 40-45% #Hx of AICD Plan -Monitor BM and hemoglobin, if not evidence of rebleed then do not plan to repeat colonoscopy-last completed on 09/21/20 -Hold home Xarelto and Aspirin. -Essential home medications. -PT/OT Disposition: probably home, keep GI appointment in early October for polypectomy Time Spent With Patient Time: Total time spent is greater than 50% in coordination of care (as documented) at patient's floor/unit and/or counseling patient:
[2020-10-07] MEDS ORDERED: ONDANSETRON 4 MG/2 ML VIAL IV PRN (22:39)
[2020-10-08] MEDS: 0.9 % SODIUM CHLORIDE 10 ML SYRINGE IV SCH ×4 (00:27→21:44)
[2020-10-08 07:44] LABS: Basophils # (Auto) 0.05 K/mcL (0.00-0.20); Basophils % (Auto) 0.6 % (0.0-2.0); Eosinophils # (Auto) 0.05 K/mcL (0.00-0.70); Eosinophils % (Auto) 0.6 % (0.0-7.0); Hematocrit 27.6 % (41.0-55.0); Hemoglobin 8.5 g/dL (13.5-16.5); Lymphocytes # (Auto) 0.82 K/mcL (1.50-4.80); Lymphocytes % (Auto) 9.7 % (15.0-49.0); Mean Cell Volume 89.9 fL (80.0-100.0); Mean Corpuscular HGB Conc 30.8 g/dL (31.0-36.0); Mean Platelet Volume 11.1 fL (7.4-10.4); Monocytes # (Auto) 1.04 K/mcL (0.10-0.90); Monocytes % (Auto) 12.4 % (1.0-12.0); Neutrophils % (Auto) 76.7 % (38.0-78.0); Platelet Count 258 K/mcL (140-440); RBC 3.07 M/mcL (4.50-5.90); Red Cell Distribution Width 18.6 % (11.5-14.5); WBC 8.4 K/mcL (4.5-11.0)
[2020-10-08] MEDS: FERROUS SULFATE 325 MG TABLET PO SCH (07:44)
[2020-10-08] MEDS: POTASSIUM CHLORIDE 10 MEQ TABLET PO SCH ×2 (07:44→17:55)
[2020-10-08] MEDS: CARVEDILOL 3.125 MG TABLET PO SCH ×2 (07:44→17:56)
[2020-10-08 07:59] LABS: Blood Urea Nitrogen 23 mg/dL (8-23); Calcium 8.8 mg/dL (8.6-10.4); Carbon Dioxide 26 mmol/L (22-30); Chloride 102 mmol/L (96-108); Glomerular Filtration Rate 84; Glucose 119 mg/dL (70-105)
[2020-10-08] MEDS: VITAMIN D3 5,000 UNIT CAPSULE PO SCH (08:32)
[2020-10-08] MEDS: DOCUSATE SODIUM 100 MG CAPSULE PO SCH ×2 (08:33→21:44)
[2020-10-08] MEDS: BUMETANIDE 1 MG TABLET PO SCH ×2 (08:33→21:45)
[2020-10-08] MEDS: LOSARTAN 25 MG TABLET PO SCH (08:33)
[2020-10-08] MEDS: MERCAPTOPURINE 50 MG TABLET PO SCH (10:32)
--- NOTE | 2020-10-08 16:01 | Internal Med Progress Note ---
SUBJECTIVE Subjective Patient information: Note initiated : 10/08/20 at 3:56 pm Service Date, if different from initiated Date: [] Patient: Evgeny Garcia 80 y/o M admitted on 10/07/20 for rectal bleeding. Chief Complaint: [] Interval history: Mr. Garcia is a 80 year old male with a history of GI bleeds, inflammatory bowel disease (probably Crohn's disease), DVT (on Xarelto), hypertension presents with bright red blood per rectum and generalized weakness. His hemoglobin declined from 10.1 to 8.6. His hemoglobin is typically in the 9- 10 range. The patient takes Xarelto for a history of DVT and also aspirin. He recently had a colonoscopy for a GI bleed that showed evidence of right colon ischemic colitis, diverticulosis, hemorrhoids, and inflammatory bowel disease consistent with Crohn's disease. The patient had a EGD on 08/03/20 that showed a large polyp in the greater curvature of the stomach. The patient has an appointment with GI at [facility] in [place], [place] for a polypectomy. 10/08-no more blood per rectum but also not much for bowel movements yet today, hemoglobin trend stable, walking in hallway with walker. Head: Atraumatic, normal inspection. Eyes: normal appearance, no scleral icterus. Neck: full ROM Respiratory: no respiratory distress. Cardiovascular: left chest AICD, normal rate and rhythm, S1, S2. GI/Abdominal: soft, nontender, no guarding. Extremities: full range of motion, nontender. Neurological: CN II-XII intact, intact motor, intact sensation. Psychiatric: normal mood. Skin: warm, normal color Constitutional Vitals: Vital Signs Temp Pulse Resp BP Pulse Ox 98.5 F 61 16 116/65 98 10/08/20 11:33 10/08/20 11:33 10/08/20 11:33 10/08/20 11:33 10/08/20 11:33 Period Temp Pulse Resp BP Sys/[place] Pulse Ox Last 24 Hr 97.8 F-99.1 F 61-95 14-22 111-131/47-76 95-99 Intake and Output 10/08/20 10/08/20 10/08/20 05:59 13:59 21:59 Intake Total 100 240 Output Total 375 900 250 Balance -275 900 -10 Weight 63.049 kg Intake & Output: Intake & Output 10/08/20 10/08/20 10/08/20 05:59 13:59 21:59 Intake Total 100 240 Output Total 375 900 250 Balance -275 -900 -10 Weight 63.049 kg Intake: Oral 100 240 Output: Urine Catheter Amount 150 Void Amount 225 600 250 Urine/Stool Mix 300 Other: Meal Lunch Percent of Meal Consumed 100% Feeding Ability Independent Urine Appearance Clear Clear Urine Color Bright Yellow Bright Yellow Stool Color Brown Bright Red Blood Stool Consistency Liquid # Voids 1 # Bowel Movements 1 # of times incontinent of 1 Bowels OBJ DATA Labs CBC & Chem 7: 10/08/20 05:50 10/08/20 05:50 Labs: Abnormal Lab Results 10/08/20 10/08/20 10/07/20 05:50 05:50 18:40 RBC 3.07 L Hgb 8.5 L Hct 27.6 L MCHC 30.8 L RDW 18.6 H MPV 11.1 H Neut % (Auto) Lymph % (Auto) 9.7 L [place] % (Auto) 12.4 H Lymph # (Auto) 0.82 L [place] # (Auto) 1.04 H Absolute Neutrophils APTT Anion Gap 7.0 L BUN Glucose 119 H Urine Appearance Hazy A Urine Protein 30 A Urine WBC 9 H Hyaline Casts 5 H Urine Mucus Few A 10/07/20 10/07/20 10/07/20 17:58 17:58 17:58 RBC 3.04 L Hgb 8.6 L Hct 27.4 L MCHC RDW 18.5 H MPV 10.8 H Neut % (Auto) 87.5 H Lymph % (Auto) 4.1 L [place] % (Auto) Lymph # (Auto) 0.38 L [place] # (Auto) Absolute Neutrophils 8.06 H APTT 38.7 H Anion Gap 7.0 L BUN 25 H Glucose 114 H Urine Appearance Urine Protein Urine WBC Hyaline Casts Urine Mucus Meds: Medications Bumetanide (Bumetanide 1 Mg Tablet) 1 mg PO BID [facility] Last Admin: 10/08/20 08:33 Dose: 1 mg Documented by: Carvedilol ([facility]ilol 3.125 Mg Tablet) [facility] Last Admin: 10/08/20 07:44 Dose: 3.125 mg Documented by: Cyanocobalamin (Cyanocobalamin (Vitamin B-12) 500 Mcg Tablet) 2,500 mcg PO [id number] [facility] Docusate Sodium (Docusate Sodium 100 Mg Capsule) 100 mg PO BID [facility] Last Admin: 10/08/20 08:33 Dose: 100 mg Documented by: Ferrous Sulfate (Ferrous Sulfate 325 Mg Tablet) 325 mg PO QAMCC [facility] Last Admin: 10/08/20 07:44 Dose: 325 mg Documented by: Losartan Potassium (Losartan 25 Mg Tablet) 25 mg PO DAILY [facility] Last Admin: 10/08/20 08:33 Dose: 25 mg Documented by: Mercaptopurine (Mercaptopurine 50 Mg Tablet) 50 mg PO DAILY [facility] Last Admin: 10/08/20 10:32 Dose: 50 mg Documented by: Ondansetron HCl (Ondansetron 4 Mg/2 Ml Vial) 4 mg IV Q6HP PRN PRN Reason: Nausea And Vomiting Balsalazide 750 Mg (Capsule) 3 dose PO TID [facility] Last Admin: 10/08/20 15:09 Dose: 3 dose Documented by: Potassium Chloride (Potassium Chloride 10 Meq Tablet) 20 meq PO BIDCC [facility] Last Admin: 10/08/20 07:44 Dose: 20 meq Documented by: Senna (Sennosides 1 Tablet) 2 tab PO HS [facility] Sertraline HCl (Sertraline 50 Mg Tablet) 25 mg PO QHS [facility] Sodium Chloride (0.9 % Sodium Chloride 10 Ml Syringe) 10 ml IV Q8 [facility] Last Admin: 10/08/20 15:09 Dose: 10 ml Documented by: Vitamin D (Vitamin D3 5,000 Unit Capsule) 5,000 unit PO QDAY [facility] Last Admin: 10/08/20 08:32 Dose: 5,000 unit Documented by: A/P Narrative A/P Narrative: Assessment: Mr. Garcia is a 80 year old male with a history of GI bleeds, inflammatory bowel disease (probably Crohn's disease), DVT (on Xarelto), hypertension presents with bright red blood per rectum and generalized weakness. #Hematochezia-probably resolved, suspect diverticular vs hemorrhoid bleed -hx of recurrent GI bleed, last bleed was felt to be due to ischemic colitis -hx of diverticulosis, hemorrhoids -was on Xarelto and Aspirin #Acute on chronic anemia (normocytic) #Generalized weakness-slowly progressive #Large gastric polyp-plans for polypectomy in early October #Hx of DVT-was on Xarelto #Inflammatory bowel syndrome-on DMARD (mercaptopurine and balsalazide) #Hx of HFrEF-LV EF improved from 30% to 40-45% #Hx of AICD Plan -Monitor BM and hemoglobin, if not evidence of rebleed then do not plan to repeat colonoscopy-last completed on 09/21/20 -Hold home Xarelto and Aspirin. -Essential home medications. -PT/OT -Disposition: probably home with , has GI appointment in early October for polypectomy. Consider neurology follow up for progressive weakness which may be secondary to neurodegenerative process. Time Spent With Patient Time: Total time spent is greater than 50% in coordination of care (as documented) at patient's floor/unit and/or counseling patient: QUALITY Stroke Symptom Onset Unknown: No VTE Deep Vein Thrombosis/Pulmonary Embolism Present on Admission: No
[2020-10-08] MEDS ORDERED: SENNOSIDES 1 TABLET PO SCH (21:00)
[2020-10-08] MEDS ORDERED: SERTRALINE 50 MG TABLET PO SCH (21:00)
[2020-10-09] MEDS: 0.9 % SODIUM CHLORIDE 10 ML SYRINGE IV SCH (06:22)
[2020-10-09] MEDS: FERROUS SULFATE 325 MG TABLET PO SCH (07:16)
[2020-10-09] MEDS: POTASSIUM CHLORIDE 10 MEQ TABLET PO SCH (07:46)
[2020-10-09] MEDS: CARVEDILOL 3.125 MG TABLET PO SCH (07:46)
[2020-10-09] MEDS ORDERED: CYANOCOBALAMIN (VITAMIN B-12) 500 MCG TABLET PO SCH (09:00)
--- NOTE | 2020-10-09 09:26 | Discharge Summary ---
Discharge Provider Provider Patient information: Note initiated : 10/09/20 at 9:21 am Service Date, if different from initiated Date: [] Patient: Evgeny Garcia 80 y/o M admitted on 10/07/20 for rectal bleeding. Chief Complaint: [] Date of admission: 10/07/20 22:24 Discharge date: 10/09/20 Primary care physician: Milton Bynum M.D., F.A.A.F.P. Consults: 10/07/20 Consult to Physician [CONS] Stat Comment: Consulting Provider: Curly Smith Reason For Exam: Physician to Consult Discharge Meds Discharge Medications Home Medications mercaptopurine 50 mg PO DAILY 07/01/17 [History Confirmed 10/07/20 Last Taken 10/07/20 07:30] cholecalciferol (vitamin D3) 125 mcg (5,000 unit) capsule 125 mcg PO QDAY 10/12/19 [History Confirmed 10/07/20 Last Taken 10/06/20 17:00] multivitamin 1 tab PO QAM 10/12/19 [History Confirmed 10/07/20 Last Taken 10/07/20 07:30] mecobalamin (vitamin B12) 1,000 mcg chewable tablet 2,500 mcg PO 3XW tab 11/23/19 [History Confirmed 10/07/20 Last Taken 10/06/20 07:30] irbesartan 75 mg tablet 75 mg PO QDAY #90 tab 05/29/20 [Rx Confirmed 10/07/20 Last Taken 10/07/20 07:30] potassium chloride 20 meq PO DAILY 08/02/20 [History Confirmed 10/07/20 Last Taken 10/07/20 07:30] carvedilol 3.125 mg PO BID 08/25/20 [History Confirmed 10/07/20 Last Taken 10/07/20 07:30] ferrous sulfate 325 mg (65 mg iron) tablet 325 mg PO QDAY #30 tab 09/12/20 [Rx Confirmed 10/07/20 Last Taken 10/07/20 12:00] bumetanide 1 mg PO QDAY 10/07/20 [History Confirmed 10/07/20 Last Taken 10/07/20 07:30] balsalazide 750 mg capsule 2,250 mg PO TID #810 cap 10/09/20 [Rx Last Taken Unknown] sertraline 25 mg tablet 25 mg PO QHS #90 tab 10/09/20 [Rx Last Taken Unknown] thiamine HCl (vitamin B1) 100 mg PO QDAY #30 tab 10/09/20 [Rx Last Taken Unknown] COURSE Hospital Course Hospital course: Mr. Garcia is a 80 year old male with a history of GI bleeds, inflammatory bowel disease (probably Crohn's disease), DVT (on Xarelto), hype rtension presents with bright red blood per rectum and generalized weakness. His hemoglobin declined from 10.1 to 8.6. His hemoglobin is typically in the 9-10 range. The patient takes Xarelto for a history of DVT and also aspirin. He recently had a colonoscopy for a GI bleed that showed evidence of right colon ischemic colitis, diverticulosis, hemorrhoids, and inflammatory bowel disease consistent with Crohn's disease. The patient had a EGD on 08/03/20 that showed a large polyp in the greater curvature of the stomach. The patient has an appointment with GI at [facility] in [place], [place] for a polypectomy. 10/08-no more blood per rectum but also not much for bowel movements yet today, hemoglobin trend stable, walking in hallway with walker. 10/09-hemoglobin stable, no more bloody bowel movements, discharged to home with home health and neurology referral for progressive weakness and difficulty ambulating. Holding Xarelto and Aspirin at discharge, the patient has an appointment with GI in [place], [place] for upper GI endoscopy soon. Started oral thiamine supplementation as patient is on a loop diuretic. Post hospital follow up; -follow up with GI in [place] for EGD. -holding Xarelto and Aspirin for recent lower GI bleed and EGD next week. -referral requested for neurology appointment for progressive generalized weakness and difficulty ambulating. -follow up with PCP. Physical Exam Head: Atraumatic, normal inspection. Eyes: normal appearance, no scleral icterus. Neck: full ROM Respiratory: no respiratory distress. Cardiovascular: left chest AICD, normal rate and rhythm, S1, S2. GI/Abdominal: soft, nontender, no guarding. Extremities: full range of motion, nontender. Neurological: CN II-XII intact, intact motor, intact sensation. Psychiatric: normal mood. Skin: warm, normal color Discharge diagnosis: Hematochezia Secondary discharge diagnosis: Generalized weakness Time Spent with Patient Time attestation: Total time spent providing and/or coordinating discharge services: EXAM Constitutional Vitals: Temp Pulse Resp BP Pulse Ox 97.8 F 71 18 131/72 100 10/09/20 07:34 10/09/20 07:34 10/09/20 07:34 10/09/20 07:34 10/09/20 07:34 Discharge Plan Patient/Caregiver Discharge Instructions Activity: as per physical therapy and increase activity as tolerated Diet: Low Sodium (2gm) and Cardiac Prescriptions: New thiamine HCl (vitamin B1) 100 mg tablet 100 mg PO QDAY Qty: 30 RF: 8 Continued irbesartan 75 mg tablet 75 mg PO QDAY Qty: 90 RF: 4 ferrous sulfate [Feosol] 325 mg (65 mg iron) tablet 325 mg PO QDAY Qty: 30 RF: 12 balsalazide 750 mg capsule 2,250 mg PO TID Qty: 810 RF: 0 sertraline 25 mg tablet 25 mg PO QHS Qty: 90 RF: 3 multivitamin [Multiple Vitamins] Tablet 1 tab PO QAM RF: 0 cholecalciferol (vitamin D3) 125 mcg (5,000 unit) capsule 125 mcg PO QDAY RF: 0 mecobalamin (vitamin B12) 1,000 mcg tablet,chewable 2,500 mcg PO 3XW RF: 0 mercaptopurine 50 MG tablet 50 mg PO DAILY RF: 0 potassium chloride 10 mEq tablet extended release 20 meq PO DAILY RF: 0 carvedilol 3.125 mg tablet 3.125 mg PO BID RF: 0 bumetanide 1 mg Tablet 1 mg PO QDAY RF: 0 Discontinued Xarelto 10 mg tablet 10 mg PO QDAY Qty: 90 RF: 4 aspirin 81 MG tablet,chewable 81 mg PO DAILY RF: 0 Other Ambulatory Orders: OT Discharge Order (Routine) Location: None Selected Ordered By: Curly Smith Physical Therapy at Discharge - General (Routine) Facility: [facility] - Location: [facility] Lab Ordered By: Curly Smith Follow Up Plan Patient Disposition: Home Health Service Overall status at discharge: patient is progressing back to baseline Discharge Orders: Discharge Order (Routine); Ordered 10/09/20 Ordered By: Curly Smith QUALITY VTE Deep Vein Thrombosis/Pulmonary Embolism Present on Admission: No
[2020-10-09] MEDS: BUMETANIDE 1 MG TABLET PO SCH (09:56)
[2020-10-09] MEDS: LOSARTAN 25 MG TABLET PO SCH (09:56)
[2020-10-09] MEDS: MERCAPTOPURINE 50 MG TABLET PO SCH (09:56)
[2020-10-09] MEDS: VITAMIN D3 5,000 UNIT CAPSULE PO SCH (09:56)
[2020-10-09] MEDS: DOCUSATE SODIUM 100 MG CAPSULE PO SCH (09:56)
--- NOTE | 2020-10-10 10:50 | EKG ---
[facility] Test Date: 2020-10-07 Pat Name: Evgeny Garcia Department: ED Room: Gender: Male [employer]: : 1940 Requested By: Daniel Moon Order Number: [id number] Reading MD: Ino Munoz M.D. Measurements Intervals [place] Rate: 81 P: 33 UT: 179 QRS: -34 QRSD: 124 T: 105 QT: 404 QTc: 469 Interpretive Statements Atrial-sensed ventricular-paced rhythm No further analysis attempted due to paced rhythm Escape beats noted Baseline wander in lead(s) I,III,aVR,aVL,V6 LEFT AXIS DEVIATION No significant change from 10-04-20 Electronically Signed On 10-09-2020 12:14:54 PDT by Ino Munoz M.D. /store/M0/[id number]
== END 2020-10-09 12:05 | disposition home health service (06) ==
LOC: ED 17:17 → MEDSUR 17:17
PROVIDERS: ADMIT Internal Medicine; ATTEND Internal Medicine